=== PATIENT | male | born 1980 | race Caucasian/White ===

== ENCOUNTER 2017-06-06 16:13 | Inpatient (IN) | payer MEDICAID ==
[2017-06-06] MEDS ORDERED: Haloperidol Lactate 5 mg/mL 1mL Vial IM STA (16:45)
[2017-06-06] MEDS ORDERED: Sodium Chloride 0.9% 1,000 ML IV ONE (16:45)
[2017-06-06] MEDS ORDERED: Haloperidol Lactate 5 mg/mL 1mL Vial ONE (16:47)
--- NOTE | 2017-06-06 16:50 | ED Physician Chart ---
ED Chief Complaint/HPI - Patient Information Date Seen:: 06/06/17 Time Seen:: 16:15 Chief Complaint:: Poor Oral Intake History of Present Illness:: onset x 3 days of poor oral intake ALOC, AMS, and failure to thrive; no report of trauma, H/As, neck pain, C/P, SOB, Abd. Pain, A/N/V/D/C, fever, chills, or urinary s/s Allergies:: Allergies Allergy/AdvReac Type Severity Reaction Status Date / Time No Known Allergies Allergy Verified 06/06/17 16:29 Vitals:: Vital Signs - 8 hr 06/06/17 16:29 Temp 97.6 F HR 125 RR 16 BP 148/78 O2 Sat % 94 Historian:: Patient, EMS Review:: Nurse's Note Reviewed, Old Chart Reviewed, EMS run form Reviewed ED Review of Systems - Review of Systems General/Constitutional: No fever, No chills, No weight loss, No weakness, No diaphoresis, No edema, No loss of appetite Skin: No skin lesions, No rash, No bruising Head: No headache, No light-headedness Eyes: No loss of vision, No pain, No diplopia ENT: No earache, No nasal drainage, No sore throat, No tinnitus Neck: No neck pain, No swelling, No thyromegaly, No stiffness, No mass noted Cardio Vascular: No chest pain, No palpitations, No PND, No orthopnea, No edema Pulmonary: No SOB, No cough, No sputum, No wheezing GI: No nausea, No vomiting, No diarrhea, No pain, No melena, No hematochezia, No constipation, No hematemesis G/U: No dysuria, No frequency, No hematuria, No nacturia Musculoskeletal: No bone or joint pain, No back pain, No muscle pain Endocrine: No polyuria, No polydipsia Psychiatric: No prior psych history, No depression, No anxiety, No suicidal ideation, No homicidal ideation, No auditory hallucination, No visual hallucination Hematopoietic: No bruising, No lymphadenopathy Allergic/Immuno: No urticaria, No angioedema Neurological: No syncope, No focal symptoms, No weakness, No paresthesia, No headache, No seizure, No dizziness, Confusion, No vertigo ED Past Medical History - Past Medical History Obtainable: Yes Past Medical History: Dementia Family History: HTN Social History: Non Smoker, No Alcohol, No Drug Use, Single, Care Facility Surgical History: None Psychiatricy History: Dementia Medication: Reviewed Family Medical History - Family Member Mother History Unknown: Yes ED Physical Exam - Physical Examination General/Constitutional: Awake, Well-developed, well-nourished, Alert, No distress, GCS 15, Non-toxic appearing, Ambulatory Head: Atraumatic Eyes: Lids, conjuctiva normal, PERRL, EOMI Skin: Nl inspection, No rash, No skin lesions, No ecchymosis, Well hydrated, No lymphadenopathy ENMT: External ears, nose nl, TM canals nl, Nasal exam nl, Lips, teeth, gums nl , Oropharynx nl, Tonsils nl Neck: Nontender, Full ROM w/o pain, No JVD, No nuchal rigidity, No bruit, No mass, No stridor Respiratory: Nl effort/Exclusion, Clear to Auscultation, No Wheeze/Rhonchi/Rales Cardio Vascular: RRR, No murmur, gallop, rubs, NL S1 S2, Carotid/Femoral/Distal pulses equal bilaterally GI: No tenderness/rebounding/guarding, No organomegaly, No hernia, Normal BS's, Nondistended, No mass/bruits, No McBurney tenderness : No CVA tenderness Extremities: No tenderness or effusion, Full ROM, normal strength in all extremities, No edema, Normal digits & nails Neuro/Psych: DTR's symmetric, Normal sensory exam, Normal motor strength, Judgement/insight normal, Mood normal, Normal gait, No focal deficits Other Neuro/Psych comments:: Disoriented and Confused Misc: Normal back, No paraspinal tenderness ED Labs/Radiology/EKG Results - Lab Results Comments:: unremarkable ED Septic Shock - . Is Septic Shock (SBP<90, OR Lactate>4 mmol\L) present?: No - <6hrs of presentation: Vital Signs: Vital Signs - 8 hr 06/06/17 16:29 Temp 97.6 F HR 125 RR 16 BP 148/78 O2 Sat % 94 ED Reassessment (Disposition) - Reassessment Reassessment Condition:: Improved - Diagnosis Diagnosis:: Failure to Thrive; AMS; ALOC; Poor Oral Intake - Aftercare/Follow up Instructions Aftercare/Follow-Up Instructions:: Counseled pt regarding lab results/diagnosis & need follow up, Counseled pt & family regarding lab results/diagnosis & need follow up - Patient Disposition Discharge/Transfer:: Acute Care w/in this hosp Accepting Physician:: Dr. Crowley Time Called:: 1814 Time Responded:: 18:15 Admitted to:: Med/Surg Spoke to:: Dr. Crowley Admitting Medical Physician:: Dr. Crowley Condition at Disposition:: Stable, Improved
[2017-06-06 18:29] LABS: % BASOPHILS 0.1 % (0.0-2.0); % EOSINOPHILS 0.2 % (0.0-5.0); % LYMPHOCYTES 33.5 % (20.0-50.0); % MONOCYTES 4.6 % (2.0-10.0); % NEUTROPHILS 61.6 % (40.0-80.0); HEMATOCRIT 40.7 % (41.0-60); HEMOGLOBIN 13.5 gm/dL (12-16); LYMPHOCYTE ABSOLUTE 1.9 Th/cmm (1.5-3.0); MEAN CELL VOLUME 82.8 fl (80-99); MEAN CORPUSCULAR HEMOGLOBIN 27.6 pg (26.0-30.0); MEAN CORPUSCULAR HGB CONC 33.3 pg (28.0-36.0); MEAN PLATELET VOLUME 8.2 fl; MONOCYTE ABSOLUTE 0.3 Th/cmm (0.3-1.0); NEUTROPHILE ABSOLUTE 3.4 Th/cmm (1.8-8.0); PLATELET COUNT 206 Th/cmm (150-400); RED BLOOD COUNT 4.91 Mil/cmm (4.30-5.70); RED CELL DISTRIBUTION WIDTH 14.2 % (11.5-20.0); WHITE BLOOD COUNT 5.6 Th/cmm (4.8-10.8)
[2017-06-06 18:48] LABS: ANION GAP 12.8 (7.0-16.0); BUN - UREA NITROGEN 13 mg/dL (7-25); CALCIUM SERUM 9.5 mg/dL (8.6-10.3); CARBON DIOXIDE 25.7 mEq/L (21.0-31.0); CHLORIDE 101 mEq/L (98-107); CREATININE - SERUM 0.7 mg/dL (0.7-1.3); GFR AFRICAN-AMERICAN > 60.0 ml/min (>90); GFR NON AFRICAN-AMERICAN > 60.0 ml/min; GLUCOSE 140 mg/dL (70-105); LIPASE 33 U/L (11-82); POTASSIUM SERUM 3.5 mEq/L (3.5-5.1); SODIUM SERUM 136 mEq/L (136-145)
[2017-06-06] MEDS: D5-0.45NS 1,000 ML IV SCH (23:40)
[2017-06-07 07:04] LABS: ANION GAP 10.7 (7.0-16.0); BUN - UREA NITROGEN 7 mg/dL (7-25); CALCIUM SERUM 9.1 mg/dL (8.6-10.3); CARBON DIOXIDE 26.4 mEq/L (21.0-31.0); CHLORIDE 105 mEq/L (98-107); CREATININE - SERUM 0.7 mg/dL (0.7-1.3); GFR AFRICAN-AMERICAN > 60.0 ml/min (>90); GFR NON AFRICAN-AMERICAN > 60.0 ml/min; GLUCOSE 83 mg/dL (70-105); POTASSIUM SERUM 3.1 mEq/L (3.5-5.1); SODIUM SERUM 139 mEq/L (136-145)
[2017-06-07 07:15] LABS: % EOSINOPHILS 0.6 % (0.0-5.0); % LYMPHOCYTES 36.5 % (20.0-50.0); % MONOCYTES 6.4 % (2.0-10.0); % NEUTROPHILS 56.5 % (40.0-80.0); HEMATOCRIT 41.3 % (41.0-60); HEMOGLOBIN 13.7 gm/dL (12-16); LYMPHOCYTE ABSOLUTE 2.5 Th/cmm (1.5-3.0); MEAN CELL VOLUME 82.7 fl (80-99); MEAN CORPUSCULAR HEMOGLOBIN 27.3 pg (26.0-30.0); MEAN CORPUSCULAR HGB CONC 33.1 pg (28.0-36.0); MEAN PLATELET VOLUME 8.5 fl; MONOCYTE ABSOLUTE 0.4 Th/cmm (0.3-1.0); PLATELET COUNT 191 Th/cmm (150-400); RED BLOOD COUNT 4.99 Mil/cmm (4.30-5.70); RED CELL DISTRIBUTION WIDTH 13.9 % (11.5-20.0); WHITE BLOOD COUNT 6.9 Th/cmm (4.8-10.8)
--- NOTE | 2017-06-07 08:58 | Consultation ---
DATE OF CONSULTATION: 06/06/2017 PSYCHIATRIC CONSULTATION SEX: Male. PHYSICIAN: Elise Crowley MD REAL ESTATE UNDERWRITER: Yumiko Davalos MD, MPH REASON FOR CONSULT: Evaluating mental status condition. HISTORY OF PRESENT ILLNESS: The patient is a 37-year-old male who was admitted to the hospital because of poor oral intake. The patient has been also anxious. The patient seems to be developmentally disabled and he was not able to answer much of my questions at this time and he was not giving any reason for why he was not eating. He also seems to be ____ responding. PAST PSYCHIATRIC HISTORY: Not known. PAST MEDICAL HISTORY: Not known, except patient was admitted with failure to thrive diagnosis as well as altered level of consciousness. SOCIAL HISTORY: The patient lives in a alf. No known alcohol or drug use. MENTAL STATUS EXAMINATION: The patient appears slightly younger than stated age. Anxious. Irritable mood. Did not answer any of my questions. Thought processes are gross poverty of speech. The patient did not answer questions regarding hallucinations or delusions. Unable to assess the rest of the mental status exam, because the patient seems to be developmentally disabled based on his verbal ability. PRIMARY DIAGNOSIS: Unspecified psychosis. TREATMENT PLAN: We will monitor the patient's behavior and condition and we will start the patient on Remeron and we will adjust the dose. Thanks Dr. Crowley and we will follow with you. JOB# [id number]
--- NOTE | 2017-06-07 09:34 | General Progress Note ---
Subjective - Review of Systems Events since last encounter: patient confused in no acute distress Objective - Results Result Diagrams: 06/07/17 06:13 06/07/17 06:13 Recent Labs: Laboratory Last Values WBC 6.9 Th/cmm (4.8-10.8) 06/07/17 06:13 RBC 4.99 Mil/cmm (4.30-5.70) 06/07/17 06:13 Hgb 13.7 gm/dL (12-16) 06/07/17 06:13 Hct 41.3 % (41.0-60) 06/07/17 06:13 MCV 82.7 fl (80-99) 06/07/17 06:13 MCH 27.3 pg (26.0-30.0) 06/07/17 06:13 MCHC Differential 33.1 pg (28.0-36.0) 06/07/17 06:13 RDW 13.9 % (11.5-20.0) 06/07/17 06:13 Plt Count 191 Th/cmm (150-400) 06/07/17 06:13 MPV 8.5 fl 06/07/17 06:13 Neutrophils % 56.5 % (40.0-80.0) 06/07/17 06:13 Lymphocytes % 36.5 % (20.0-50.0) 06/07/17 06:13 Monocytes % 6.4 % (2.0-10.0) 06/07/17 06:13 Eosinophils % 0.6 % (0.0-5.0) 06/07/17 06:13 Basophils % 0.0 % (0.0-2.0) 06/07/17 06:13 Sodium 139 mEq/L (136-145) 06/07/17 06:13 Potassium 3.1 mEq/L (3.5-5.1) L 06/07/17 06:13 Chloride 105 mEq/L (98-107) 06/07/17 06:13 Carbon Dioxide 26.4 mEq/L (21.0-31.0) 06/07/17 06:13 Anion Gap 10.7 (7.0-16.0) 06/07/17 06:13 BUN 7 mg/dL (7-25) 06/07/17 06:13 Creatinine 0.7 mg/dL (0.7-1.3) 06/07/17 06:13 Est GFR ( Amer) > 60.0 ml/min (>90) 06/07/17 06:13 Est GFR (Non-Af Amer) > 60.0 ml/min 06/07/17 06:13 BUN/Creatinine Ratio 10.0 06/07/17 06:13 Glucose 83 mg/dL (70-105) 06/07/17 06:13 Calcium 9.1 mg/dL (8.6-10.3) 06/07/17 06:13 Troponin I < 0.01 ng/mL (0.01-0.05) L 06/06/17 18:13 Lipase 33 U/L (11-82) 06/06/17 18:13 - Physical Exam Vitals and I&O: Vital Signs Temp 98.2 F 06/07/17 04:00 Pulse 98 06/07/17 07:36 Resp 18 06/07/17 07:36 BP 136/72 06/07/17 04:00 Pulse Ox 92 06/07/17 07:36 Intake & Output 06/06/17 06/07/17 06/07/17 18:59 06:59 18:59 Intake Total 100 100 Balance 100 100 Weight (lbs) 55.928 kg 55.792 kg Intake: Oral 100 100 Other: # Voids 1 3 Active Medications: Current Medications Benztropine Mesylate (Cogentin) 1 mg PO BID KEMI Stop: 08/06/17 08:59 Cyproheptadine HCl (Periactin) 4 mg PO BID KEMI Stop: 08/06/17 08:59 Diphenhydramine HCl (Benadryl) 25 mg PO HS KEMI Stop: 08/06/17 20:59 Divalproex Sodium (Depakote Sprinkle) 125 mg PO BID KEMI PRN Reason: Protocol Stop: 08/06/17 08:59 Gemfibrozil (Lopid) 600 mg PO BID KEMI Stop: 08/06/17 08:59 Hydroxyzine Pamoate (Vistaril) 50 mg PO TID KEMI PRN Reason: Protocol Stop: 08/06/17 08:59 Dextrose/Sodium Chloride (D5-0.45ns) 1,000 mls @ 75 mls/hr IV .[id number] KEMI Stop: 08/05/17 22:09 Last Admin: 06/06/17 23:40 Dose: 75 mls/hr Lorazepam (Ativan) 1 mg IVP Q6H PRN; Protocol PRN Reason: Agitation Stop: 08/05/17 22:09 Last Admin: 06/07/17 05:27 Dose: 1 mg Mirtazapine (Remeron) 7.5 mg PO HS KEMI PRN Reason: Protocol Stop: 08/06/17 20:59 Miscellaneous (Risperidone [Risperdal]) 2 mg PO BID KEMI Stop: 08/06/17 08:59 Multivitamins/Vitamin C (Theragran) 1 tab PO DAILY KEMI Stop: 08/06/17 08:59 Risperidone (Risperdal) mg PO DAILY KEMI PRN Reason: Protocol Stop: 08/06/17 08:59
[2017-06-07] MEDS: Benztropine 1 MG TAB PO SCH ×2 (10:51→16:46)
[2017-06-07] MEDS: Cyproheptadine 4 mg Tab PO SCH ×2 (10:51→16:46)
[2017-06-07] MEDS: Multivitamin Tab PO SCH (10:51)
[2017-06-07] MEDS ORDERED: Potassium Chloride 20 mEq ER Tab PO ONE (12:08)
--- NOTE | 2017-06-07 16:39 | History & Physical ---
ADMIT DATE: 06/06/2017 HISTORY OF PRESENT ILLNESS: This patient came through the Emergency Room and was admitted on 06/06/2017. The patient has 3-day onset of poor intake, altered level of consciousness, failure to thrive and the patient was seen by Dr. Mo Tony and was admitted. PAST MEDICAL HISTORY: History of dementia. FAMILY HISTORY: History of hypertension. The patient is a poor historian. All the nurses' notes are noted. REVIEW OF SYSTEMS: Essentially, the patient has confusion and the patient is not able to eat. PHYSICAL EXAMINATION: GENERAL: Awake, alert and elderly male patient. VITAL SIGNS: As noted in chart. HEAD: Normal. ENT: Normal. NECK: Supple and nontender. LUNGS: Clear. CARDIOVASCULAR SYSTEM: S1 and S2 heard. ABDOMEN: Soft. Bowel sounds are heard. CENTRAL NERVOUS SYSTEM: The patient is disoriented and confused. DIAGNOSES: Severe dementia, failure to thrive, rule out electrolyte imbalance was made and the patient is being admitted and I will go ahead and do the workup and I will have Neurology and Psych doctor see the patient and I will follow the patient. JOB# [id number]
--- NOTE | 2017-06-08 08:45 | General Progress Note ---
Subjective - Review of Systems Events since last encounter: failure to thrive confused Objective - Results Result Diagrams: 06/07/17 06:13 06/07/17 06:13 Recent Labs: Laboratory Last Values WBC 6.9 Th/cmm (4.8-10.8) 06/07/17 06:13 RBC 4.99 Mil/cmm (4.30-5.70) 06/07/17 06:13 Hgb 13.7 gm/dL (12-16) 06/07/17 06:13 Hct 41.3 % (41.0-60) 06/07/17 06:13 MCV 82.7 fl (80-99) 06/07/17 06:13 MCH 27.3 pg (26.0-30.0) 06/07/17 06:13 MCHC Differential 33.1 pg (28.0-36.0) 06/07/17 06:13 RDW 13.9 % (11.5-20.0) 06/07/17 06:13 Plt Count 191 Th/cmm (150-400) 06/07/17 06:13 MPV 8.5 fl 06/07/17 06:13 Neutrophils % 56.5 % (40.0-80.0) 06/07/17 06:13 Lymphocytes % 36.5 % (20.0-50.0) 06/07/17 06:13 Monocytes % 6.4 % (2.0-10.0) 06/07/17 06:13 Eosinophils % 0.6 % (0.0-5.0) 06/07/17 06:13 Basophils % 0.0 % (0.0-2.0) 06/07/17 06:13 Sodium 139 mEq/L (136-145) 06/07/17 06:13 Potassium 3.1 mEq/L (3.5-5.1) L 06/07/17 06:13 Chloride 105 mEq/L (98-107) 06/07/17 06:13 Carbon Dioxide 26.4 mEq/L (21.0-31.0) 06/07/17 06:13 Anion Gap 10.7 (7.0-16.0) 06/07/17 06:13 BUN 7 mg/dL (7-25) 06/07/17 06:13 Creatinine 0.7 mg/dL (0.7-1.3) 06/07/17 06:13 Est GFR ( Amer) > 60.0 ml/min (>90) 06/07/17 06:13 Est GFR (Non-Af Amer) > 60.0 ml/min 06/07/17 06:13 BUN/Creatinine Ratio 10.0 06/07/17 06:13 Glucose 83 mg/dL (70-105) 06/07/17 06:13 Calcium 9.1 mg/dL (8.6-10.3) 06/07/17 06:13 Troponin I < 0.01 ng/mL (0.01-0.05) L 06/06/17 18:13 Lipase 33 U/L (11-82) 06/06/17 18:13 - Physical Exam Vitals and I&O: Vital Signs Temp 96.9 F 06/08/17 08:00 Pulse 64 06/08/17 08:00 Resp 16 06/08/17 08:00 BP 88/52 06/08/17 05:35 Pulse Ox 100 06/08/17 08:00 Intake & Output 06/07/17 06/08/17 06/08/17 18:59 06:59 18:59 Intake Total 2200 Balance 2200 Weight (lbs) 55.928 kg Intake: Intake, IV Amount 2000 D5-0.45NS 1,000 ml @ 75 1000 mls/hr IV .[id number] [facility] Rx #:[id number] Oral 200 Other: # Voids 2 # Bowel Movements 0 Active Medications: Current Medications Benztropine Mesylate (Cogentin) 1 mg PO BID KEMI Stop: 08/06/17 08:59 Last Admin: 06/07/17 16:46 Dose: 1 mg Cyproheptadine HCl (Periactin) 4 mg PO BID KEMI Stop: 08/06/17 08:59 Last Admin: 06/07/17 16:46 Dose: 4 mg Diphenhydramine HCl (Benadryl) 25 mg PO HS KEMI Stop: 08/06/17 20:59 Last Admin: 06/07/17 21:31 Dose: 25 mg Divalproex Sodium (Depakote Sprinkle) 125 mg PO BID [facility] PRN Reason: Protocol Stop: 08/06/17 11:59 Last Admin: 06/07/17 16:46 Dose: 125 mg Gemfibrozil (Lopid) 600 mg PO BID [facility] Stop: 08/06/17 08:59 Last Admin: 06/07/17 16:46 Dose: 600 mg Hydroxyzine Pamoate (Vistaril) 50 mg PO TID KEMI PRN Reason: Protocol Stop: 08/06/17 08:59 Last Admin: 06/07/17 21:31 Dose: 50 mg Dextrose/Sodium Chloride (D5-0.45ns) 1,000 mls @ 75 mls/hr IV .[id number] KEMI Stop: 08/05/17 22:09 Last Infusion: 06/07/17 18:05 Dose: Infused Lorazepam (Ativan) 1 mg IVP Q6H PRN; Protocol PRN Reason: Agitation Stop: 08/05/17 22:09 Last Admin: 06/07/17 21:34 Dose: 1 mg Mirtazapine (Remeron) 7.5 mg PO HS KEMI PRN Reason: Protocol Stop: 08/06/17 20:59 Last Admin: 06/07/17 22:05 Dose: 7.5 mg Multivitamins/Vitamin C (Theragran) 1 tab PO DAILY [facility] Stop: 08/06/17 08:59 Last Admin: 06/07/17 10:51 Dose: 1 tab Risperidone (Risperdal) 2 mg PO BID@0700,2100 [facility] Stop: 08/06/17 12:59 Last Admin: 06/08/17 06:58 Dose: Not Given Nutritional Asmnt/Malnutr-PDOC - Dietary Evaluation Malnutrition Findings (Please click <Entered> for more info): Nutritional Asmnt/Malnutrition Start: 06/07/17 15: 37 Text: Status: Complete Freq: Document 06/07/17 15:37 LCHENG (Rec: 06/07/17 15:47 [email or web address]) Nutritional Asmnt/Malnutrition Patient General Information Nutritional Screening High Risk Consult Diagnosis ALOC, poor oral intake Pertinent Medical Hx/Surgical Hx dementia Subjective Information Consult received for poor PO intake. Pt seen sitting up in bed, confused, avoid eye contact, not able to communicate. Per [employer], pt was sleeping and had no breakfast. Pt still refused lunch, and trying to get out of bed multiple times. Per note, pt is easily agitated, pull iv. Current Diet Order/ Nutrition Support regular Pertinent Medications D5-0.45ns, remeron, theragran Pertinent Labs 06/07 K 3.1 Nutritional Hx/Data Height 1.52 m Height (Calculated Centimeters) 152.4 Current Weight (lbs) 55.792 kg Weight (Calculated Kilograms) 55.8 Weight (Calculated Grams) 30162.9 [place] Body Weight 106 Body Mass Index (BMI) 24.0 Weight Status Approriate GI Symptoms GI Symptoms None Last BM no record Difficult in: None Skin Integrity/Comment: intact Estimated Nutritional Goals BEE in Kcals: Using Current wt Calories/Kcals/Kg 25-30 Kcals Calculated 8618-8836 Protein: Using Current wt Protein g/k.8-1 Protein Calculated 45-56 Fluid: ml 1400-1680ml (1ml/kcal) Nutritional Problem 1. Problem Problem inadequate food intake Etiology mental status Signs/Symptoms: PO intake<25% Malnutrition Alert Protein-Calorie Malnutrition N/A Is there a minimum of two criteria No selected? Query Text:Check all the applicable criteria. A minimum of two criteria are recommended for diagnosis of either severe or non-severe malnutrition. Intervention/Recommendation Comments 1. Continue with current diet as ordered. Assist with feeding and encourage eating meals and snacks between meals . 2. Monitor PO intake, wt, labs and skin integrity 3. F/U as high risk in 2-3 days, 06/08-06/09 Expected Outcomes/Goals Expected Outcomes/Goals 1. PO intake to meet at least 75% of nutritional needs. 2. Wt stability, skin to remain intact, labs to approach WNL.
--- NOTE | 2017-06-08 09:52 | Progress Notes ---
DATE: SUBJECTIVE: Chart reviewed and the patient interviewed. Also discussed the patient's condition with the staff and reviewed records and labs. The patient is still anxious and has episodes of agitation, but he is calm. The patient also is compliant with taking his medications and no side effects of Risperdal or Remeron or Depakote. ASSESSMENT: The patient is still depressed and anxious, considered to be gravely disabled. TREATMENT PLAN: We will continue to monitor his behavior. Also, the patient is taking Risperdal 1 mg twice a day and will discontinue 1 mg in the evening and we will continue to follow up. [facility]# [id number]
[2017-06-08] MEDS: Cyproheptadine 4 mg Tab PO SCH ×2 (10:10→17:09)
[2017-06-08] MEDS: Benztropine 1 MG TAB PO SCH ×2 (10:10→17:09)
[2017-06-08] MEDS: Multivitamin Tab PO SCH (10:11)
--- NOTE | 2017-06-08 10:18 | Diagnostic Imaging Report ---
CT abdomen and pelvis without intravenous contrast Indication: Abdominal pain Comparison: None, Technique: Axial images were obtained from the lung bases to the bilateral proximal femurs without IV contrast. Coronal reconstructions were made. total DLP: 440, CTDI8.3 FINDINGS: Hypoventilatory atelectatic changes of the lung bases are noted. Assessment of the solid organs is limited due to lack of IV contrast. Exam is also limited due to motion. No evidence of focal hepatic, splenic, or pancreatic lesions. No focal adrenal lesions. No evidence of hydronephrosis or focal renal lesions. There is copious amount of stool throughout the colon. No evidence of bowel obstruction. No evidence of appendicitis. There may be minimal thickening involving the descending colonic bowel wall. No free fluid or free air. The osseous structures demonstrate no acute abnormalities. IMPRESSION: Copious stool throughout the colon. There may be minimal bowel wall thickening of the descending colonic bowel wall. This may be due to suboptimal distention, however, mild inflammatory process cannot be excluded. Please correlate with clinical findings. No evidence of free abdominal fluid. No evidence of hydronephrosis
[2017-06-08] MEDS: D5-0.45NS 1,000 ML IV SCH (16:50)
[2017-06-08 17:12] LABS: URINE MICROSCOPIC INDICATED? YES; URINE SOURCE CLEAN C
[2017-06-08 17:15] LABS: URINE BILIRUBIN NEGATIVE (NEGATIVE); URINE BLOOD NEGATIVE (NEGATIVE); URINE GLUCOSE (UA) NEGATIVE (NEGATIVE); URINE KETONE NEGATIVE (NEGATIVE); URINE LEUKOCYTE ESTERASE NEGATIVE (NEGATIVE); URINE NITRATE NEGATIVE (NEGATIVE); URINE PROTEIN NEGATIVE (NEGATIVE)
--- NOTE | 2017-06-08 17:24 | Consultation ---
DATE OF CONSULTATION: 06/08/2017 INPATIENT GI CONSULTATION CONSULTING PHYSICIAN: Dr. Crowley. REASON FOR CONSULTATION: Failure to thrive, anorexia. HISTORY OF PRESENT ILLNESS: The patient is a 37-year-old male with history of dementia and possibly delayed development, who is a permanent resident of a alf facility, who was brought into the hospital because it was noted that he was not eating for the past 3-4 days. The history other than this is not obtainable as the patient at the current time is not participating in the interview. He was given Ativan last night for agitation and thus he is very sleepy this morning, but the nurses report that before that he was not giving a meaningful interview other than the agitation. His caretakers at the facility had noted that he just had not been eating for the past several days, but not exhibiting any specific symptoms such as nausea, vomiting, or abdominal distention. PAST MEDICAL HISTORY: Unknown except for possible developmental delay and psychiatric issues. FAMILY HISTORY: Unknown. PAST SURGICAL HISTORY: Also unknown at this point. SOCIAL HISTORY: The patient does live at a prison. There is no documented history of alcoholism or drug use. ALLERGIES: There are no documented known drug allergies. REVIEW OF SYSTEMS: Not possible given that the patient is not able to participate in the interview. CURRENT MEDICATIONS: Benztropine, cyproheptadine, Benadryl, Depakote, Lopid, Vistaril, Ativan, Remeron, multivitamin, Risperdal. PHYSICAL EXAMINATION: VITAL SIGNS: Blood pressure is 88/52, pulse of 65 beats per minute, temperature 96.8, and oxygenation 100%. GENERAL: The patient is lying flat in bed. He is in 2-point restraints. He is not alert and oriented at this point, does not appear to be in distress. HEAD, EARS, EYES, NOSE, AND THROAT: The patient has his eyes closed at this time, although he does respond to painful stimuli. There is no scleral icterus. Moist mucous membranes are noted. NECK: Supple. No obvious JVD or thyromegaly or lymphadenopathy. CHEST: There are no obvious crackles on auscultation. CARDIOVASCULAR: S1 and S2 are present, regular rate and rhythm. ABDOMEN: Soft. There is no obvious tenderness to palpation or distention or guarding or rebound. EXTREMITIES: There is no obvious edema and pulses are present. SKIN: No obvious jaundice or cyanosis. LABORATORY DATA AND DIAGNOSTIC STUDIES: White blood cell count is 6.9, hemoglobin 13.7, platelet count 191. Sodium 139, BUN 7, creatinine 0.7. Troponin is negative. Lipase 33. No imaging has been performed. IMPRESSION: This is a 37-year-old male, who is a resident of a prison, who has possibly developmental delay versus psychiatric illness, who was brought into the hospital because he has not been eating for the past 3 days. 1. Anorexia for 3 days. 2. Possible psychiatric illness versus developmental delay. DISCUSSION: At this point, it is very unclear what is going on as the patient has only not been eating for the past several days, so this seems like an acute process rather than a chronic issue. I think it may be reasonable before placing a G-tube to try to investigate this further, see if there is an infection or some other reason for the patient not taking in adequate p.o. I have ordered an abdominal CT scan to check out the stomach and small bowel and large bowel and also urinalysis to look for a UTI infection. RECOMMENDATIONS: 1. We will follow up the results of the abdominal CT scan and UA. Otherwise, his labs are essentially normal. 2. After the CT scan, the patient should be again given a diet and observe if he will take any nutrition. If everything is negative on his workup and he still is not taking any nutrition, we can consider placing a G-tube ultimately. Thank you for allowing me to participate in this patient's care. I will continue to follow. [facility]# [id number]
[2017-06-08 17:48] LABS: URINE BACTERIA OCCASIONAL /hpf (NONE SEEN); URINE CLARITY SLIGHTLY HAZY (CLEAR); URINE COLOR YELLOW; URINE EPITHELIAL CELLS RARE /lpf (FEW); URINE RBC NONE SEEN /hpf (0-5); URINE WBC 0-2 /hpf (0-5)
[2017-06-09] MEDS: D5-0.45NS 1,000 ML IV SCH (06:00)
[2017-06-09] MEDS: Cyproheptadine 4 mg Tab PO SCH ×2 (09:45→16:45)
[2017-06-09] MEDS: Multivitamin Tab PO SCH (09:45)
[2017-06-09] MEDS: Benztropine 1 MG TAB PO SCH ×2 (09:45→16:46)
--- NOTE | 2017-06-09 10:49 | GI Progress Note ---
Subjective - Review of Systems Service Date: 06/09/17 Subjective: Pt ate dinner as per nursing report, but had refused his lunch and breakfast yesterday Objective - Results Result Diagrams: 06/07/17 06:13 06/07/17 06:13 Recent Labs: Laboratory Last Values WBC 6.9 Th/cmm (4.8-10.8) 06/07/17 06:13 RBC 4.99 Mil/cmm (4.30-5.70) 06/07/17 06:13 Hgb 13.7 gm/dL (12-16) 06/07/17 06:13 Hct 41.3 % (41.0-60) 06/07/17 06:13 MCV 82.7 fl (80-99) 06/07/17 06:13 MCH 27.3 pg (26.0-30.0) 06/07/17 06:13 MCHC Differential 33.1 pg (28.0-36.0) 06/07/17 06:13 RDW 13.9 % (11.5-20.0) 06/07/17 06:13 Plt Count 191 Th/cmm (150-400) 06/07/17 06:13 MPV 8.5 fl 06/07/17 06:13 Neutrophils % 56.5 % (40.0-80.0) 06/07/17 06:13 Lymphocytes % 36.5 % (20.0-50.0) 06/07/17 06:13 Monocytes % 6.4 % (2.0-10.0) 06/07/17 06:13 Eosinophils % 0.6 % (0.0-5.0) 06/07/17 06:13 Basophils % 0.0 % (0.0-2.0) 06/07/17 06:13 Sodium 139 mEq/L (136-145) 06/07/17 06:13 Potassium 3.1 mEq/L (3.5-5.1) L 06/07/17 06:13 Chloride 105 mEq/L (98-107) 06/07/17 06:13 Carbon Dioxide 26.4 mEq/L (21.0-31.0) 06/07/17 06:13 Anion Gap 10.7 (7.0-16.0) 06/07/17 06:13 BUN 7 mg/dL (7-25) 06/07/17 06:13 Creatinine 0.7 mg/dL (0.7-1.3) 06/07/17 06:13 Est GFR ( Amer) > 60.0 ml/min (>90) 06/07/17 06:13 Est GFR (Non-Af Amer) > 60.0 ml/min 06/07/17 06:13 BUN/Creatinine Ratio 10.0 06/07/17 06:13 Glucose 83 mg/dL (70-105) 06/07/17 06:13 Calcium 9.1 mg/dL (8.6-10.3) 06/07/17 06:13 Troponin I < 0.01 ng/mL (0.01-0.05) L 06/06/17 18:13 Lipase 33 U/L (11-82) 06/06/17 18:13 Urine Source CLEAN C 06/08/17 15:30 Urine Color YELLOW 06/08/17 15:30 Urine Clarity SLIGHTLY HAZY (CLEAR) 06/08/17 15:30 Urine pH 6.0 (4.6 - 8.0) 06/08/17 15:30 Ur Specific [place] 1.025 (1.005-1.030) 06/08/17 15:30 Urine Protein NEGATIVE mg/dL (NEGATIVE) 06/08/17 15:30 Urine Glucose (UA) NEGATIVE mg/dL (NEGATIVE) 06/08/17 15:30 Urine Ketones NEGATIVE mg/dL (NEGATIVE) 06/08/17 15:30 Urine Blood NEGATIVE (NEGATIVE) 06/08/17 15:30 Urine Nitrate NEGATIVE (NEGATIVE) 06/08/17 15:30 Urine Bilirubin NEGATIVE (NEGATIVE) 06/08/17 15:30 Urine Urobilinogen 1.0 E.U./dL (0.2 - 1.0) 06/08/17 15:30 Ur Leukocyte Esterase NEGATIVE (NEGATIVE) 06/08/17 15:30 Urine RBC NONE SEEN /hpf (0-5) 06/08/17 15:30 Urine WBC 0-2 /hpf (0-5) 06/08/17 15:30 Ur Epithelial Cells RARE /lpf (FEW) 06/08/17 15:30 Calcium Oxalate Crystal FEW /hpf 06/08/17 15:30 Urine Bacteria OCCASIONAL /hpf (NONE SEEN) 06/08/17 15:30 - Physical Exam Vitals and I&O: Vital Signs Temp 98 F 06/09/17 09:00 Pulse 62 06/09/17 09:00 Resp 18 06/09/17 09:00 BP 93/48 06/09/17 09:00 Pulse Ox 98 06/09/17 08:00 Intake & Output 06/08/17 06/09/17 06/09/17 18:59 06:59 18:59 Intake Total 0 987.5 Output Total 300 2 Balance -300 985.5 Weight (lbs) 58.967 kg 59.08 kg Intake: Intake, IV Amount 987.5 D5-0.45NS 1,000 ml @ 75 987.5 mls/hr IV .[id number] [facility] Rx #:[id number] Oral 0 Output: Urine 300 2 Other: # Voids 0 Active Medications: Current Medications Benztropine Mesylate (Cogentin) 1 mg PO BID [facility] Stop: 08/06/17 08:59 Last Admin: 06/09/17 09:45 Dose: Not Given Cyproheptadine HCl (Periactin) 4 mg PO BID [facility] Stop: 08/06/17 08:59 Last Admin: 06/09/17 09:45 Dose: Not Given Diphenhydramine HCl (Benadryl) 25 mg PO HS [facility] Stop: 08/06/17 20:59 Last Admin: 06/08/17 21:47 Dose: Not Given Divalproex Sodium (Depakote Sprinkle) 125 mg PO BID [facility] PRN Reason: Protocol Stop: 08/06/17 11:59 Last Admin: 06/09/17 09:45 Dose: Not Given Gemfibrozil (Lopid) 600 mg PO BID [facility] Stop: 08/06/17 08:59 Last Admin: 06/09/17 09:45 Dose: Not Given Hydroxyzine Pamoate (Vistaril) 50 mg PO TID [facility] PRN Reason: Protocol Stop: 08/06/17 08:59 Last Admin: 06/09/17 09:45 Dose: Not Given Dextrose/Sodium Chloride (D5-0.45ns) 1,000 mls @ 75 mls/hr IV .[id number] [facility] Stop: 08/05/17 22:09 Last Admin: 06/09/17 06:00 Dose: 75 mls/hr Lorazepam (Ativan) 1 mg IVP Q6H PRN; Protocol PRN Reason: Agitation Stop: 08/05/17 22:09 Last Admin: 06/08/17 08:45 Dose: 1 mg Mirtazapine (Remeron) 7.5 mg PO HS [facility] PRN Reason: Protocol Stop: 08/06/17 20:59 Last Admin: 06/08/17 21:48 Dose: Not Given Multivitamins/Vitamin C (Theragran) 1 tab PO DAILY [facility] Stop: 08/06/17 08:59 Last Admin: 06/09/17 09:45 Dose: Not Given Risperidone (Risperdal) 2 mg PO BID@0700,2100 [facility] Stop: 08/06/17 12:59 Last Admin: 06/09/17 06:05 Dose: Not Given Sodium Phosphate (Fleet Enema) 135 ml RC X1 ONE Stop: 06/09/17 11:33 General: Alert Neck: Supple Cardiovascular: Regular rate Abdomen: Bowel sounds, Soft, Distended, no Hepatomegaly, no Rebound, no Mass, no Guarding, no Obese Skin: no Rash Assessment/Plan - Assessment Assessment: # Anorexia # Constipation # Developmental delay CT scan shows colon full of stool, and this is likely to be contributing to his refusal to eat. Will try and help him clear stool with enemas and laxatives from above Plan: - fleet enema now, and then tap water enema every 6 hours - miralax bid dosing - cont to try and encourage eating his meals - if he worsens, or does not improve, can consider NG insertion for bowel prep
[2017-06-09] MEDS ORDERED: Fleet Enema 135 mL RC ONE (11:32)
[2017-06-09] MEDS: POLYETHYLENE GLYCOL 3350 17 GM PACK PO SCH ×2 (13:36→16:45)
--- NOTE | 2017-06-09 15:28 | Internal Medicine Prog Note ---
Internal Medicine Subjective - Subjective Service Date: 06/09/17 Patient seen and examined:: with staff Patient is:: awake Per staff patient has:: tolerating meds Internal Medicine Objective - Results Result Diagrams: 06/07/17 06:13 06/07/17 06:13 Recent Labs: Laboratory Last Values WBC 6.9 Th/cmm (4.8-10.8) 06/07/17 06:13 RBC 4.99 Mil/cmm (4.30-5.70) 06/07/17 06:13 Hgb 13.7 gm/dL (12-16) 06/07/17 06:13 Hct 41.3 % (41.0-60) 06/07/17 06:13 MCV 82.7 fl (80-99) 06/07/17 06:13 MCH 27.3 pg (26.0-30.0) 06/07/17 06:13 MCHC Differential 33.1 pg (28.0-36.0) 06/07/17 06:13 RDW 13.9 % (11.5-20.0) 06/07/17 06:13 Plt Count 191 Th/cmm (150-400) 06/07/17 06:13 MPV 8.5 fl 06/07/17 06:13 Neutrophils % 56.5 % (40.0-80.0) 06/07/17 06:13 Lymphocytes % 36.5 % (20.0-50.0) 06/07/17 06:13 Monocytes % 6.4 % (2.0-10.0) 06/07/17 06:13 Eosinophils % 0.6 % (0.0-5.0) 06/07/17 06:13 Basophils % 0.0 % (0.0-2.0) 06/07/17 06:13 Sodium 139 mEq/L (136-145) 06/07/17 06:13 Potassium 3.1 mEq/L (3.5-5.1) L 06/07/17 06:13 Chloride 105 mEq/L (98-107) 06/07/17 06:13 Carbon Dioxide 26.4 mEq/L (21.0-31.0) 06/07/17 06:13 Anion Gap 10.7 (7.0-16.0) 06/07/17 06:13 BUN 7 mg/dL (7-25) 06/07/17 06:13 Creatinine 0.7 mg/dL (0.7-1.3) 06/07/17 06:13 Est GFR ( Amer) > 60.0 ml/min (>90) 06/07/17 06:13 Est GFR (Non-Af Amer) > 60.0 ml/min 06/07/17 06:13 BUN/Creatinine Ratio 10.0 06/07/17 06:13 Glucose 83 mg/dL (70-105) 06/07/17 06:13 Calcium 9.1 mg/dL (8.6-10.3) 06/07/17 06:13 Troponin I < 0.01 ng/mL (0.01-0.05) L 06/06/17 18:13 Lipase 33 U/L (11-82) 06/06/17 18:13 Urine Source CLEAN C 06/08/17 15:30 Urine Color YELLOW 06/08/17 15:30 Urine Clarity SLIGHTLY HAZY (CLEAR) 06/08/17 15:30 Urine pH 6.0 (4.6 - 8.0) 06/08/17 15:30 Ur Specific [place] 1.025 (1.005-1.030) 06/08/17 15:30 Urine Protein NEGATIVE mg/dL (NEGATIVE) 06/08/17 15:30 Urine Glucose (UA) NEGATIVE mg/dL (NEGATIVE) 06/08/17 15:30 Urine Ketones NEGATIVE mg/dL (NEGATIVE) 06/08/17 15:30 Urine Blood NEGATIVE (NEGATIVE) 06/08/17 15:30 Urine Nitrate NEGATIVE (NEGATIVE) 06/08/17 15:30 Urine Bilirubin NEGATIVE (NEGATIVE) 06/08/17 15:30 Urine Urobilinogen 1.0 E.U./dL (0.2 - 1.0) 06/08/17 15:30 Ur Leukocyte Esterase NEGATIVE (NEGATIVE) 06/08/17 15:30 Urine RBC NONE SEEN /hpf (0-5) 06/08/17 15:30 Urine WBC 0-2 /hpf (0-5) 06/08/17 15:30 Ur Epithelial Cells RARE /lpf (FEW) 06/08/17 15:30 Calcium Oxalate Crystal FEW /hpf 06/08/17 15:30 Urine Bacteria OCCASIONAL /hpf (NONE SEEN) 06/08/17 15:30 - Physical Exam Vitals and I&O: Vital Signs Temp 97.6 F 06/09/17 13:00 Pulse 104 06/09/17 13:00 Resp 18 06/09/17 13:00 BP 97/50 06/09/17 13:00 Pulse Ox 99 06/09/17 12:00 Intake & Output 06/08/17 06/09/17 06/09/17 18:59 06:59 18:59 Intake Total 0 987.5 Output Total 300 2 Balance -300 985.5 Weight (lbs) 130 lb 130 lb 4 oz Intake: Intake, IV Amount 987.5 D5-0.45NS 1,000 ml @ 75 987.5 mls/hr IV .[id number] [facility] Rx #:[id number] Oral 0 Output: Urine 300 2 Other: # Voids 0 Weight Source Bedscale Bedscale Active Medications: Current Medications Benztropine Mesylate (Cogentin) 1 mg PO BID [facility] Stop: 08/06/17 08:59 Last Admin: 06/09/17 09:45 Dose: Not Given Cyproheptadine HCl (Periactin) 4 mg PO BID [facility] Stop: 08/06/17 08:59 Last Admin: 06/09/17 09:45 Dose: Not Given Diphenhydramine HCl (Benadryl) 25 mg PO HS [facility] Stop: 08/06/17 20:59 Last Admin: 06/08/17 21:47 Dose: Not Given Divalproex Sodium (Depakote Sprinkle) 125 mg PO BID [facility] PRN Reason: Protocol Stop: 08/06/17 11:59 Last Admin: 06/09/17 09:45 Dose: Not Given Gemfibrozil (Lopid) 600 mg PO BID [facility] Stop: 08/06/17 08:59 Last Admin: 06/09/17 09:45 Dose: Not Given Hydroxyzine Pamoate (Vistaril) 50 mg PO TID [facility] PRN Reason: Protocol Stop: 08/06/17 08:59 Last Admin: 06/09/17 14:45 Dose: 50 mg Dextrose/Sodium Chloride (D5-0.45ns) 1,000 mls @ 75 mls/hr IV .[id number] [facility] Stop: 08/05/17 22:09 Last Admin: 06/09/17 06:00 Dose: 75 mls/hr Lorazepam (Ativan) 1 mg IVP Q6H PRN; Protocol PRN Reason: Agitation Stop: 08/05/17 22:09 Last Admin: 06/09/17 11:34 Dose: 1 mg Mirtazapine (Remeron) 7.5 mg PO HS [facility] PRN Reason: Protocol Stop: 08/06/17 20:59 Last Admin: 06/08/17 21:48 Dose: Not Given Multivitamins/Vitamin C (Theragran) 1 tab PO DAILY [facility] Stop: 08/06/17 08:59 Last Admin: 06/09/17 09:45 Dose: Not Given Polyethylene Glycol (Miralax) 17 gm PO BID [facility] Stop: 08/08/17 12:14 Last Admin: 06/09/17 13:36 Dose: 17 gm Risperidone (Risperdal) 2 mg PO BID@0700,2100 [facility] Stop: 08/06/17 12:59 Last Admin: 06/09/17 06:05 Dose: Not Given General: weak, alert HEENT: NC/AT, PERRLA Neck: Supple Lungs: CTAB Cardiovascular: RRR, without murmur Abdomen: soft, non-distended, positive bowel sound Neurological: alert Internal Medicine Assmt/Plan - Assessment Assessment: severe dementia failure to thrive r/o electrolyte imbalance - Plan Plan: monitor i+o and electrolytes follow up labs in am continue current orders Nutritional Asmnt/Malnutr-PDOC - Dietary Evaluation Malnutrition Findings (Please click <Entered> for more info): Nutritional Asmnt/Malnutrition Start: 06/07/17 15: 37 Text: Status: Complete Freq: Document 06/07/17 15:37 LCHENG (Rec: 06/07/17 15:47 [email or web address]) Nutritional Asmnt/Malnutrition Patient General Information Nutritional Screening High Risk Consult Diagnosis ALOC, poor oral intake Pertinent Medical Hx/Surgical Hx dementia Subjective Information Consult received for poor PO intake. Pt seen sitting up in bed, confused, avoid eye contact, not able to communicate. Per OUTREACH LIBRARIAN, pt was sleeping and had no breakfast. Pt still refused lunch, and trying to get out of bed multiple times. Per note, pt is easily agitated, pull iv. Current Diet Order/ Nutrition Support regular Pertinent Medications D5-0.45ns, remeron, theragran Pertinent Labs 06/07 K 3.1 Nutritional Hx/Data Height 5 ft Height (Calculated Centimeters) 152.4 Current Weight (lbs) 123 lb Weight (Calculated Kilograms) 55.8 Weight (Calculated Grams) 66086.9 [place] Body Weight 106 Body Mass Index (BMI) 24.0 Weight Status Approriate GI Symptoms GI Symptoms None Last BM no record Difficult in: None Skin Integrity/Comment: intact Estimated Nutritional Goals BEE in Kcals: Using Current wt Calories/Kcals/Kg 25-30 Kcals Calculated 2724-3300 Protein: Using Current wt Protein g/k.8-1 Protein Calculated 45-56 Fluid: ml 1400-1680ml (1ml/kcal) Nutritional Problem 1. Problem Problem inadequate food intake Etiology mental status Signs/Symptoms: PO intake<25% Malnutrition Alert Protein-Calorie Malnutrition N/A Is there a minimum of two criteria No selected? Query Text:Check all the applicable criteria. A minimum of two criteria are recommended for diagnosis of either severe or non-severe malnutrition. Intervention/Recommendation Comments 1. Continue with current diet as ordered. Assist with feeding and encourage eating meals and snacks between meals . 2. Monitor PO intake, wt, labs and skin integrity 3. F/U as high risk in 2-3 days, 06/08-06/09 Expected Outcomes/Goals Expected Outcomes/Goals 1. PO intake to meet at least 75% of nutritional needs. 2. Wt stability, skin to remain intact, labs to approach WNL.
[2017-06-09] MEDS ORDERED: Haloperidol Lactate 5 mg/mL 1mL Vial IM PRN (18:51)
[2017-06-10 07:05] LABS: % BASOPHILS 0.4 % (0.0-2.0); % LYMPHOCYTES 47.5 % (20.0-50.0); % MONOCYTES 6.4 % (2.0-10.0); % NEUTROPHILS 44.7 % (40.0-80.0); EOSINOPHILE ABSOLUTE 0.1 Th/cmm (0.1-0.4); HEMATOCRIT 42.8 % (41.0-60); LYMPHOCYTE ABSOLUTE 2.9 Th/cmm (1.5-3.0); MEAN CELL VOLUME 83.4 fl (80-99); MEAN CORPUSCULAR HEMOGLOBIN 27.3 pg (26.0-30.0); MEAN CORPUSCULAR HGB CONC 32.8 pg (28.0-36.0); MEAN PLATELET VOLUME 8.4 fl; MONOCYTE ABSOLUTE 0.4 Th/cmm (0.3-1.0); NEUTROPHILE ABSOLUTE 2.7 Th/cmm (1.8-8.0); PLATELET COUNT 192 Th/cmm (150-400); RED BLOOD COUNT 5.14 Mil/cmm (4.30-5.70); RED CELL DISTRIBUTION WIDTH 14.3 % (11.5-20.0); WHITE BLOOD COUNT 6.1 Th/cmm (4.8-10.8)
[2017-06-10 07:19] LABS: ANION GAP 10.4 (7.0-16.0); BUN - UREA NITROGEN 5 mg/dL (7-25); CALCIUM SERUM 9.4 mg/dL (8.6-10.3); CARBON DIOXIDE 25.8 mEq/L (21.0-31.0); CHLORIDE 108 mEq/L (98-107); CREATININE - SERUM 0.6 mg/dL (0.7-1.3); GFR AFRICAN-AMERICAN > 60.0 ml/min (>90); GFR NON AFRICAN-AMERICAN > 60.0 ml/min; GLUCOSE 81 mg/dL (70-105); POTASSIUM SERUM 3.2 mEq/L (3.5-5.1); SODIUM SERUM 141 mEq/L (136-145)
--- NOTE | 2017-06-10 08:39 | GI Progress Note ---
Subjective - Review of Systems Service Date: 06/10/17 Subjective: GI NOTE Not eating much this AM. Objective - Results Result Diagrams: 06/10/17 06:30 06/10/17 06:30 Recent Labs: Laboratory Last Values WBC 6.1 Th/cmm (4.8-10.8) 06/10/17 06:30 RBC 5.14 Mil/cmm (4.30-5.70) 06/10/17 06:30 Hgb 14.0 gm/dL (12-16) 06/10/17 06:30 Hct 42.8 % (41.0-60) 06/10/17 06:30 MCV 83.4 fl (80-99) 06/10/17 06:30 MCH 27.3 pg (26.0-30.0) 06/10/17 06:30 MCHC Differential 32.8 pg (28.0-36.0) 06/10/17 06:30 RDW 14.3 % (11.5-20.0) 06/10/17 06:30 Plt Count 192 Th/cmm (150-400) 06/10/17 06:30 MPV 8.4 fl 06/10/17 06:30 Neutrophils % 44.7 % (40.0-80.0) 06/10/17 06:30 Lymphocytes % 47.5 % (20.0-50.0) 06/10/17 06:30 Monocytes % 6.4 % (2.0-10.0) 06/10/17 06:30 Eosinophils % 1.0 % (0.0-5.0) 06/10/17 06:30 Basophils % 0.4 % (0.0-2.0) 06/10/17 06:30 Sodium 141 mEq/L (136-145) 06/10/17 06:30 Potassium 3.2 mEq/L (3.5-5.1) L 06/10/17 06:30 Chloride 108 mEq/L (98-107) H 06/10/17 06:30 Carbon Dioxide 25.8 mEq/L (21.0-31.0) 06/10/17 06:30 Anion Gap 10.4 (7.0-16.0) 06/10/17 06:30 BUN 5 mg/dL (7-25) L 06/10/17 06:30 Creatinine 0.6 mg/dL (0.7-1.3) L 06/10/17 06:30 Est GFR ( Amer) > 60.0 ml/min (>90) 06/10/17 06:30 Est GFR (Non-Af Amer) > 60.0 ml/min 06/10/17 06:30 BUN/Creatinine Ratio 8.3 06/10/17 06:30 Glucose 81 mg/dL (70-105) 06/10/17 06:30 Calcium 9.4 mg/dL (8.6-10.3) 06/10/17 06:30 Troponin I < 0.01 ng/mL (0.01-0.05) L 06/06/17 18:13 Lipase 33 U/L (11-82) 06/06/17 18:13 Urine Source CLEAN C 06/08/17 15:30 Urine Color YELLOW 06/08/17 15:30 Urine Clarity SLIGHTLY HAZY (CLEAR) 06/08/17 15:30 Urine pH 6.0 (4.6 - 8.0) 06/08/17 15:30 Ur Specific [place] 1.025 (1.005-1.030) 06/08/17 15:30 Urine Protein NEGATIVE mg/dL (NEGATIVE) 06/08/17 15:30 Urine Glucose (UA) NEGATIVE mg/dL (NEGATIVE) 06/08/17 15:30 Urine Ketones NEGATIVE mg/dL (NEGATIVE) 06/08/17 15:30 Urine Blood NEGATIVE (NEGATIVE) 06/08/17 15:30 Urine Nitrate NEGATIVE (NEGATIVE) 06/08/17 15:30 Urine Bilirubin NEGATIVE (NEGATIVE) 06/08/17 15:30 Urine Urobilinogen 1.0 E.U./dL (0.2 - 1.0) 06/08/17 15:30 Ur Leukocyte Esterase NEGATIVE (NEGATIVE) 06/08/17 15:30 Urine RBC NONE SEEN /hpf (0-5) 06/08/17 15:30 Urine WBC 0-2 /hpf (0-5) 06/08/17 15:30 Ur Epithelial Cells RARE /lpf (FEW) 06/08/17 15:30 Calcium Oxalate Crystal FEW /hpf 06/08/17 15:30 Urine Bacteria OCCASIONAL /hpf (NONE SEEN) 06/08/17 15:30 - Physical Exam Vitals and I&O: Vital Signs Temp 97.2 F 06/10/17 04:00 Pulse 65 06/10/17 04:00 Resp 20 06/10/17 04:00 BP 92/51 06/10/17 04:00 Pulse Ox 96 06/10/17 04:00 Intake & Output 06/09/17 06/10/17 06/10/17 18:59 06:59 18:59 Intake Total 300 120 Balance 300 120 Weight (lbs) 58.967 kg 58.967 kg Intake: Oral 300 120 Other: # Voids 4 3 # Bowel Movements 1 Stool Characteristics Soft Weight Source Bedscale Bedscale Active Medications: Current Medications Benztropine Mesylate (Cogentin) 1 mg PO BID [facility] Stop: 08/06/17 08:59 Last Admin: 06/09/17 16:46 Dose: 1 mg Cyproheptadine HCl (Periactin) 4 mg PO BID [facility] Stop: 08/06/17 08:59 Last Admin: 06/09/17 16:45 Dose: 4 mg Diphenhydramine HCl (Benadryl) 25 mg PO HS [facility] Stop: 08/06/17 20:59 Last Admin: 06/09/17 21:00 Dose: 25 mg Diphenhydramine HCl (Benadryl 50 Mg/Ml) 25 mg IM Q6HR PRN PRN Reason: Agitation Stop: 08/08/17 18:55 Divalproex Sodium (Depakote Sprinkle) 125 mg PO BID [facility] PRN Reason: Protocol Stop: 08/06/17 11:59 Last Admin: 06/09/17 16:46 Dose: 125 mg Gemfibrozil (Lopid) 600 mg PO BID [facility] Stop: 08/06/17 08:59 Last Admin: 06/09/17 16:46 Dose: 600 mg Haloperidol Lactate (Haldol) 3 mg IM Q6H PRN PRN Reason: Agitation Stop: 08/08/17 18:50 Hydroxyzine Pamoate (Vistaril) 50 mg PO TID [facility] PRN Reason: Protocol Stop: 08/06/17 08:59 Last Admin: 06/09/17 20:59 Dose: 50 mg Dextrose/Sodium Chloride (D5-0.45ns) 1,000 mls @ 75 mls/hr IV .[id number] [facility] Stop: 08/05/17 22:09 Last Admin: 06/09/17 06:00 Dose: 75 mls/hr Lorazepam (Ativan) 1 mg IVP Q6H PRN; Protocol PRN Reason: Agitation Stop: 08/05/17 22:09 Last Admin: 06/09/17 16:29 Dose: 1 mg Lorazepam (Ativan) 1 mg IM Q6H PRN; Protocol PRN Reason: Agitation Stop: 08/08/17 18:53 Mirtazapine (Remeron) 7.5 mg PO HS [facility] PRN Reason: Protocol Stop: 08/06/17 20:59 Last Admin: 06/09/17 21:00 Dose: 7.5 mg Multivitamins/Vitamin C (Theragran) 1 tab PO DAILY [facility] Stop: 08/06/17 08:59 Last Admin: 06/09/17 09:45 Dose: Not Given Polyethylene Glycol (Miralax) 17 gm PO BID [facility] Stop: 08/08/17 12:14 Last Admin: 06/09/17 16:45 Dose: 17 gm Risperidone (Risperdal) 2 mg PO BID@0700,2100 [facility] Stop: 08/06/17 12:59 Last Admin: 06/10/17 06:22 Dose: Not Given General: No acute distress Neck: Supple Cardiovascular: Regular rate Abdomen: Bowel sounds, Soft, Distended, no Hepatomegaly, no Rebound, no Mass, no Guarding, no Obese Assessment/Plan - Assessment Assessment: # Anorexia # Constipation # Developmental delay CT scan shows colon full of stool, and this is likely to be contributing to his refusal to eat. Will try and help him clear stool with enemas and laxatives from above Plan: - tap water enema every 6 hours - miralax bid dosing - cont to try and encourage eating his meals - if he worsens, or does not improve, can consider NG insertion for bowel prep - may need PEG insertion if oral intake remains poor.
[2017-06-10] MEDS: POLYETHYLENE GLYCOL 3350 17 GM PACK PO SCH ×2 (08:40→16:53)
[2017-06-10] MEDS: Benztropine 1 MG TAB PO SCH ×2 (08:41→16:53)
[2017-06-10] MEDS: Cyproheptadine 4 mg Tab PO SCH ×2 (08:41→16:53)
[2017-06-10] MEDS: Multivitamin Tab PO SCH (08:42)
--- NOTE | 2017-06-10 10:48 | General Progress Note ---
Subjective - Review of Systems Events since last encounter: awake alert poor appetite Objective - Results Result Diagrams: 06/10/17 06:30 06/10/17 06:30 Recent Labs: Laboratory Last Values WBC 6.1 Th/cmm (4.8-10.8) 06/10/17 06:30 RBC 5.14 Mil/cmm (4.30-5.70) 06/10/17 06:30 Hgb 14.0 gm/dL (12-16) 06/10/17 06:30 Hct 42.8 % (41.0-60) 06/10/17 06:30 MCV 83.4 fl (80-99) 06/10/17 06:30 MCH 27.3 pg (26.0-30.0) 06/10/17 06:30 MCHC Differential 32.8 pg (28.0-36.0) 06/10/17 06:30 RDW 14.3 % (11.5-20.0) 06/10/17 06:30 Plt Count 192 Th/cmm (150-400) 06/10/17 06:30 MPV 8.4 fl 06/10/17 06:30 Neutrophils % 44.7 % (40.0-80.0) 06/10/17 06:30 Lymphocytes % 47.5 % (20.0-50.0) 06/10/17 06:30 Monocytes % 6.4 % (2.0-10.0) 06/10/17 06:30 Eosinophils % 1.0 % (0.0-5.0) 06/10/17 06:30 Basophils % 0.4 % (0.0-2.0) 06/10/17 06:30 Sodium 141 mEq/L (136-145) 06/10/17 06:30 Potassium 3.2 mEq/L (3.5-5.1) L 06/10/17 06:30 Chloride 108 mEq/L (98-107) H 06/10/17 06:30 Carbon Dioxide 25.8 mEq/L (21.0-31.0) 06/10/17 06:30 Anion Gap 10.4 (7.0-16.0) 06/10/17 06:30 BUN 5 mg/dL (7-25) L 06/10/17 06:30 Creatinine 0.6 mg/dL (0.7-1.3) L 06/10/17 06:30 Est GFR ( Amer) > 60.0 ml/min (>90) 06/10/17 06:30 Est GFR (Non-Af Amer) > 60.0 ml/min 06/10/17 06:30 BUN/Creatinine Ratio 8.3 06/10/17 06:30 Glucose 81 mg/dL (70-105) 06/10/17 06:30 Calcium 9.4 mg/dL (8.6-10.3) 06/10/17 06:30 Troponin I < 0.01 ng/mL (0.01-0.05) L 06/06/17 18:13 Lipase 33 U/L (11-82) 06/06/17 18:13 Urine Source CLEAN C 06/08/17 15:30 Urine Color YELLOW 06/08/17 15:30 Urine Clarity SLIGHTLY HAZY (CLEAR) 06/08/17 15:30 Urine pH 6.0 (4.6 - 8.0) 06/08/17 15:30 Ur Specific [place] 1.025 (1.005-1.030) 06/08/17 15:30 Urine Protein NEGATIVE mg/dL (NEGATIVE) 06/08/17 15:30 Urine Glucose (UA) NEGATIVE mg/dL (NEGATIVE) 06/08/17 15:30 Urine Ketones NEGATIVE mg/dL (NEGATIVE) 06/08/17 15:30 Urine Blood NEGATIVE (NEGATIVE) 06/08/17 15:30 Urine Nitrate NEGATIVE (NEGATIVE) 06/08/17 15:30 Urine Bilirubin NEGATIVE (NEGATIVE) 06/08/17 15:30 Urine Urobilinogen 1.0 E.U./dL (0.2 - 1.0) 06/08/17 15:30 Ur Leukocyte Esterase NEGATIVE (NEGATIVE) 06/08/17 15:30 Urine RBC NONE SEEN /hpf (0-5) 06/08/17 15:30 Urine WBC 0-2 /hpf (0-5) 06/08/17 15:30 Ur Epithelial Cells RARE /lpf (FEW) 06/08/17 15:30 Calcium Oxalate Crystal FEW /hpf 06/08/17 15:30 Urine Bacteria OCCASIONAL /hpf (NONE SEEN) 06/08/17 15:30 - Physical Exam Vitals and I&O: Vital Signs Temp 97.7 F 06/10/17 09:00 Pulse 83 06/10/17 09:00 Resp 18 06/10/17 09:00 BP 107/50 06/10/17 09:00 Pulse Ox 98 06/10/17 08:00 Intake & Output 06/09/17 06/10/17 06/10/17 18:59 06:59 18:59 Intake Total 300 120 Balance 300 120 Weight (lbs) 58.967 kg 58.967 kg Intake: Oral 300 120 Other: # Voids 4 3 # Bowel Movements 1 Stool Characteristics Soft Soft Weight Source Bedscale Bedscale Active Medications: Current Medications Benztropine Mesylate (Cogentin) 1 mg PO BID [facility] Stop: 08/06/17 08:59 Last Admin: 06/10/17 08:41 Dose: 1 mg Cyproheptadine HCl (Periactin) 4 mg PO BID [facility] Stop: 08/06/17 08:59 Last Admin: 06/10/17 08:41 Dose: 4 mg Diphenhydramine HCl (Benadryl) 25 mg PO HS [facility] Stop: 08/06/17 20:59 Last Admin: 06/09/17 21:00 Dose: 25 mg Diphenhydramine HCl (Benadryl 50 Mg/Ml) 25 mg IM Q6HR PRN PRN Reason: Agitation Stop: 08/08/17 18:55 Divalproex Sodium (Depakote Sprinkle) 125 mg PO BID [facility] PRN Reason: Protocol Stop: 08/06/17 11:59 Last Admin: 06/10/17 08:42 Dose: 125 mg Gemfibrozil (Lopid) 600 mg PO BID [facility] Stop: 08/06/17 08:59 Last Admin: 06/10/17 08:42 Dose: 600 mg Haloperidol Lactate (Haldol) 3 mg IM Q6H PRN PRN Reason: Agitation Stop: 08/08/17 18:50 Hydroxyzine Pamoate (Vistaril) 50 mg PO TID [facility] PRN Reason: Protocol Stop: 08/06/17 08:59 Last Admin: 06/10/17 08:42 Dose: 50 mg Dextrose/Sodium Chloride (D5-0.45ns) 1,000 mls @ 75 mls/hr IV .[id number] [facility] Stop: 08/05/17 22:09 Last Admin: 06/09/17 06:00 Dose: 75 mls/hr Lorazepam (Ativan) 1 mg IVP Q6H PRN; Protocol PRN Reason: Agitation Stop: 08/05/17 22:09 Last Admin: 06/09/17 16:29 Dose: 1 mg Lorazepam (Ativan) 1 mg IM Q6H PRN; Protocol PRN Reason: Agitation Stop: 08/08/17 18:53 Mirtazapine (Remeron) 7.5 mg PO HS [facility] PRN Reason: Protocol Stop: 08/06/17 20:59 Last Admin: 06/09/17 21:00 Dose: 7.5 mg Multivitamins/Vitamin C (Theragran) 1 tab PO DAILY [facility] Stop: 08/06/17 08:59 Last Admin: 06/10/17 08:42 Dose: 1 tab Polyethylene Glycol (Miralax) 17 gm PO BID [facility] Stop: 08/08/17 12:14 Last Admin: 06/10/17 08:40 Dose: 17 gm Risperidone (Risperdal) 2 mg PO BID@0700,2100 [facility] Stop: 08/06/17 12:59 Last Admin: 06/10/17 06:22 Dose: Not Given General: No acute distress Neck: Supple Cardiovascular: Regular rate Abdomen: Bowel sounds, Soft, Distended, no Hepatomegaly, no Rebound, no Mass, no Guarding, no Obese Skin: no Rash Nutritional Asmnt/Malnutr-PDOC - Dietary Evaluation Malnutrition Findings (Please click <Entered> for more info): Nutritional Asmnt/Malnutrition Start: 06/07/17 15: 37 Text: Status: Complete Freq: Document 06/07/17 15:37 LCHENG (Rec: 06/07/17 15:47 [email or web address]) Nutritional Asmnt/Malnutrition Patient General Information Nutritional Screening High Risk Consult Diagnosis ALOC, poor oral intake Pertinent Medical Hx/Surgical Hx dementia Subjective Information Consult received for poor PO intake. Pt seen sitting up in bed, confused, avoid eye contact, not able to communicate. Per SANE RN, pt was sleeping and had no breakfast. Pt still refused lunch, and trying to get out of bed multiple times. Per note, pt is easily agitated, pull iv. Current Diet Order/ Nutrition Support regular Pertinent Medications D5-0.45ns, remeron, theragran Pertinent Labs 3/21 K 3.1 Nutritional Hx/Data Height 1.52 m Height (Calculated Centimeters) 152.4 Current Weight (lbs) 55.792 kg Weight (Calculated Kilograms) 55.8 Weight (Calculated Grams) 85808.9 [place] Body Weight 106 Body Mass Index (BMI) 24.0 Weight Status Approriate GI Symptoms GI Symptoms None Last BM no record Difficult in: None Skin Integrity/Comment: intact Estimated Nutritional Goals BEE in Kcals: Using Current wt Calories/Kcals/Kg 25-30 Kcals Calculated 5609-3213 Protein: Using Current wt Protein g/k.8-1 Protein Calculated 45-56 Fluid: ml 1400-1680ml (1ml/kcal) Nutritional Problem 1. Problem Problem inadequate food intake Etiology mental status Signs/Symptoms: PO intake<25% Malnutrition Alert Protein-Calorie Malnutrition N/A Is there a minimum of two criteria No selected? Query Text:Check all the applicable criteria. A minimum of two criteria are recommended for diagnosis of either severe or non-severe malnutrition. Intervention/Recommendation Comments 1. Continue with current diet as ordered. Assist with feeding and encourage eating meals and snacks between meals . 2. Monitor PO intake, wt, labs and skin integrity 3. F/U as high risk in 2-3 days, 06/08-06/09 Expected Outcomes/Goals Expected Outcomes/Goals 1. PO intake to meet at least 75% of nutritional needs. 2. Wt stability, skin to remain intact, labs to approach WNL.
[2017-06-10] MEDS: D5-0.45NS 1,000 ML IV SCH (13:54)
--- NOTE | 2017-06-10 21:16 | Progress Notes ---
DATE: 06/09/2017 Chart reviewed and the patient interviewed. Also discussed the patient's condition with the staff and reviewed records and labs. The patient seems to be more irritable and more agitated today. Also, is still unable to follow directions easy. The patient also is still aggressive towards staff when they tried to calm him down. He also seems to be confused and forgetful and unable to answer my questions currently. ASSESSMENT: The patient is still agitated and is still restless and aggressive. TREATMENT PLAN: We will continue to monitor his behavior and his condition closely. Also, continue to work on his irritability and anger. Also, may adjust psychotropic medications and will continue to follow up. JOB# [id number]
[2017-06-11] MEDS: D5-0.45NS 1,000 ML IV SCH ×2 (05:33→21:11)
--- NOTE | 2017-06-11 08:20 | GI Progress Note ---
Subjective - Review of Systems Service Date: 06/11/17 Subjective: GI NOTE Not eating much. Confused. Objective - Results Result Diagrams: 06/10/17 06:30 06/10/17 06:30 Recent Labs: Laboratory Last Values WBC 6.1 Th/cmm (4.8-10.8) 06/10/17 06:30 RBC 5.14 Mil/cmm (4.30-5.70) 06/10/17 06:30 Hgb 14.0 gm/dL (12-16) 06/10/17 06:30 Hct 42.8 % (41.0-60) 06/10/17 06:30 MCV 83.4 fl (80-99) 06/10/17 06:30 MCH 27.3 pg (26.0-30.0) 06/10/17 06:30 MCHC Differential 32.8 pg (28.0-36.0) 06/10/17 06:30 RDW 14.3 % (11.5-20.0) 06/10/17 06:30 Plt Count 192 Th/cmm (150-400) 06/10/17 06:30 MPV 8.4 fl 06/10/17 06:30 Neutrophils % 44.7 % (40.0-80.0) 06/10/17 06:30 Lymphocytes % 47.5 % (20.0-50.0) 06/10/17 06:30 Monocytes % 6.4 % (2.0-10.0) 06/10/17 06:30 Eosinophils % 1.0 % (0.0-5.0) 06/10/17 06:30 Basophils % 0.4 % (0.0-2.0) 06/10/17 06:30 Sodium 141 mEq/L (136-145) 06/10/17 06:30 Potassium 3.2 mEq/L (3.5-5.1) L 06/10/17 06:30 Chloride 108 mEq/L (98-107) H 06/10/17 06:30 Carbon Dioxide 25.8 mEq/L (21.0-31.0) 06/10/17 06:30 Anion Gap 10.4 (7.0-16.0) 06/10/17 06:30 BUN 5 mg/dL (7-25) L 06/10/17 06:30 Creatinine 0.6 mg/dL (0.7-1.3) L 06/10/17 06:30 Est GFR ( Amer) > 60.0 ml/min (>90) 06/10/17 06:30 Est GFR (Non-Af Amer) > 60.0 ml/min 06/10/17 06:30 BUN/Creatinine Ratio 8.3 06/10/17 06:30 Glucose 81 mg/dL (70-105) 06/10/17 06:30 Calcium 9.4 mg/dL (8.6-10.3) 06/10/17 06:30 Troponin I < 0.01 ng/mL (0.01-0.05) L 06/06/17 18:13 Lipase 33 U/L (11-82) 06/06/17 18:13 Urine Source CLEAN C 06/08/17 15:30 Urine Color YELLOW 06/08/17 15:30 Urine Clarity SLIGHTLY HAZY (CLEAR) 06/08/17 15:30 Urine pH 6.0 (4.6 - 8.0) 06/08/17 15:30 Ur Specific [place] 1.025 (1.005-1.030) 06/08/17 15:30 Urine Protein NEGATIVE mg/dL (NEGATIVE) 06/08/17 15:30 Urine Glucose (UA) NEGATIVE mg/dL (NEGATIVE) 06/08/17 15:30 Urine Ketones NEGATIVE mg/dL (NEGATIVE) 06/08/17 15:30 Urine Blood NEGATIVE (NEGATIVE) 06/08/17 15:30 Urine Nitrate NEGATIVE (NEGATIVE) 06/08/17 15:30 Urine Bilirubin NEGATIVE (NEGATIVE) 06/08/17 15:30 Urine Urobilinogen 1.0 E.U./dL (0.2 - 1.0) 06/08/17 15:30 Ur Leukocyte Esterase NEGATIVE (NEGATIVE) 06/08/17 15:30 Urine RBC NONE SEEN /hpf (0-5) 06/08/17 15:30 Urine WBC 0-2 /hpf (0-5) 06/08/17 15:30 Ur Epithelial Cells RARE /lpf (FEW) 06/08/17 15:30 Calcium Oxalate Crystal FEW /hpf 06/08/17 15:30 Urine Bacteria OCCASIONAL /hpf (NONE SEEN) 06/08/17 15:30 - Physical Exam Vitals and I&O: Vital Signs Temp 96.2 F 06/11/17 04:00 Pulse 62 06/11/17 04:00 Resp 20 06/11/17 04:00 BP 99/50 06/11/17 04:00 Pulse Ox 99 06/11/17 04:00 Intake & Output 06/10/17 06/11/17 06/11/17 18:59 06:59 18:59 Intake Total 851.25 758.75 Balance 851.25 758.75 Weight (lbs) 59.012 kg 59.562 kg Intake: Intake, IV Amount 301.25 698.75 D5-0.45NS 1,000 ml @ 75 301.25 698.75 mls/hr IV .[id number] [facility] Rx #:[id number] Oral 550 60 Other: # Voids 3 3 # Bowel Movements 1 Stool Characteristics Soft Formed Brown Weight Source Bedscale Bedscale Active Medications: Current Medications Benztropine Mesylate (Cogentin) 1 mg PO BID [facility] Stop: 08/06/17 08:59 Last Admin: 06/10/17 16:53 Dose: 1 mg Cyproheptadine HCl (Periactin) 4 mg PO BID [facility] Stop: 08/06/17 08:59 Last Admin: 06/10/17 16:53 Dose: 4 mg Diphenhydramine HCl (Benadryl) 25 mg PO HS [facility] Stop: 08/06/17 20:59 Last Admin: 06/10/17 20:17 Dose: 25 mg Diphenhydramine HCl (Benadryl 50 Mg/Ml) 25 mg IM Q6HR PRN PRN Reason: Agitation Stop: 08/08/17 18:55 Divalproex Sodium (Depakote Sprinkle) 125 mg PO BID [facility] PRN Reason: Protocol Stop: 08/06/17 11:59 Last Admin: 06/10/17 16:52 Dose: 125 mg Gemfibrozil (Lopid) 600 mg PO BID [facility] Stop: 08/06/17 08:59 Last Admin: 06/10/17 16:53 Dose: 600 mg Haloperidol Lactate (Haldol) 3 mg IM Q6H PRN PRN Reason: Agitation Stop: 08/08/17 18:50 Hydroxyzine Pamoate (Vistaril) 50 mg PO TID [facility] PRN Reason: Protocol Stop: 08/06/17 08:59 Last Admin: 06/10/17 20:17 Dose: 50 mg Dextrose/Sodium Chloride (D5-0.45ns) 1,000 mls @ 75 mls/hr IV .[id number] [facility] Stop: 08/05/17 22:09 Last Admin: 06/11/17 05:33 Dose: 75 mls/hr Lorazepam (Ativan) 1 mg IVP Q6H PRN; Protocol PRN Reason: Agitation Stop: 08/05/17 22:09 Last Admin: 06/09/17 16:29 Dose: 1 mg Lorazepam (Ativan) 1 mg IM Q6H PRN; Protocol PRN Reason: Agitation Stop: 08/08/17 18:53 Mirtazapine (Remeron) 7.5 mg PO HS [facility] PRN Reason: Protocol Stop: 08/06/17 20:59 Last Admin: 06/10/17 20:17 Dose: 7.5 mg Multivitamins/Vitamin C (Theragran) 1 tab PO DAILY [facility] Stop: 08/06/17 08:59 Last Admin: 06/10/17 08:42 Dose: 1 tab Polyethylene Glycol (Miralax) 17 gm PO BID [facility] Stop: 08/08/17 12:14 Last Admin: 06/10/17 16:53 Dose: 17 gm Risperidone (Risperdal) 2 mg PO BID@0700,2100 [facility] Stop: 08/06/17 12:59 Last Admin: 06/11/17 06:17 Dose: Not Given General: No acute distress Neck: Supple Cardiovascular: Regular rate Abdomen: Bowel sounds, Soft, Distended, no Hepatomegaly, no Rebound, no Mass, no Guarding, no Obese Skin: no Rash Assessment/Plan - Assessment Assessment: # Anorexia # Constipation # Developmental delay CT scan shows colon full of stool, and this is likely to be contributing to his refusal to eat. Will try and help him clear stool with enemas and laxatives from above Plan: - tap water enema every 6 hours - miralax bid dosing - cont to try and encourage eating his meals - if he worsens, or does not improve, can consider NG insertion for bowel prep - may need PEG insertion if oral intake remains poor. - check calorie count. - serial KUB checks to assess constipation.
[2017-06-11] MEDS: POLYETHYLENE GLYCOL 3350 17 GM PACK PO SCH ×2 (08:54→16:47)
[2017-06-11] MEDS: Cyproheptadine 4 mg Tab PO SCH ×2 (08:55→16:47)
[2017-06-11] MEDS: Multivitamin Tab PO SCH (08:55)
[2017-06-11] MEDS: Benztropine 1 MG TAB PO SCH ×2 (08:55→16:47)
--- NOTE | 2017-06-11 10:25 | General Progress Note ---
Subjective - Review of Systems Events since last encounter: patient is awake confused denies pain poor appetite Objective - Results Result Diagrams: 06/10/17 06:30 06/10/17 06:30 Recent Labs: Laboratory Last Values WBC 6.1 Th/cmm (4.8-10.8) 06/10/17 06:30 RBC 5.14 Mil/cmm (4.30-5.70) 06/10/17 06:30 Hgb 14.0 gm/dL (12-16) 06/10/17 06:30 Hct 42.8 % (41.0-60) 06/10/17 06:30 MCV 83.4 fl (80-99) 06/10/17 06:30 MCH 27.3 pg (26.0-30.0) 06/10/17 06:30 MCHC Differential 32.8 pg (28.0-36.0) 06/10/17 06:30 RDW 14.3 % (11.5-20.0) 06/10/17 06:30 Plt Count 192 Th/cmm (150-400) 06/10/17 06:30 MPV 8.4 fl 06/10/17 06:30 Neutrophils % 44.7 % (40.0-80.0) 06/10/17 06:30 Lymphocytes % 47.5 % (20.0-50.0) 06/10/17 06:30 Monocytes % 6.4 % (2.0-10.0) 06/10/17 06:30 Eosinophils % 1.0 % (0.0-5.0) 06/10/17 06:30 Basophils % 0.4 % (0.0-2.0) 06/10/17 06:30 Sodium 141 mEq/L (136-145) 06/10/17 06:30 Potassium 3.2 mEq/L (3.5-5.1) L 06/10/17 06:30 Chloride 108 mEq/L (98-107) H 06/10/17 06:30 Carbon Dioxide 25.8 mEq/L (21.0-31.0) 06/10/17 06:30 Anion Gap 10.4 (7.0-16.0) 06/10/17 06:30 BUN 5 mg/dL (7-25) L 06/10/17 06:30 Creatinine 0.6 mg/dL (0.7-1.3) L 06/10/17 06:30 Est GFR ( Amer) > 60.0 ml/min (>90) 06/10/17 06:30 Est GFR (Non-Af Amer) > 60.0 ml/min 06/10/17 06:30 BUN/Creatinine Ratio 8.3 06/10/17 06:30 Glucose 81 mg/dL (70-105) 06/10/17 06:30 Calcium 9.4 mg/dL (8.6-10.3) 06/10/17 06:30 Troponin I < 0.01 ng/mL (0.01-0.05) L 06/06/17 18:13 Lipase 33 U/L (11-82) 06/06/17 18:13 Urine Source CLEAN C 06/08/17 15:30 Urine Color YELLOW 06/08/17 15:30 Urine Clarity SLIGHTLY HAZY (CLEAR) 06/08/17 15:30 Urine pH 6.0 (4.6 - 8.0) 06/08/17 15:30 Ur Specific [place] 1.025 (1.005-1.030) 06/08/17 15:30 Urine Protein NEGATIVE mg/dL (NEGATIVE) 06/08/17 15:30 Urine Glucose (UA) NEGATIVE mg/dL (NEGATIVE) 06/08/17 15:30 Urine Ketones NEGATIVE mg/dL (NEGATIVE) 06/08/17 15:30 Urine Blood NEGATIVE (NEGATIVE) 06/08/17 15:30 Urine Nitrate NEGATIVE (NEGATIVE) 06/08/17 15:30 Urine Bilirubin NEGATIVE (NEGATIVE) 06/08/17 15:30 Urine Urobilinogen 1.0 E.U./dL (0.2 - 1.0) 06/08/17 15:30 Ur Leukocyte Esterase NEGATIVE (NEGATIVE) 06/08/17 15:30 Urine RBC NONE SEEN /hpf (0-5) 06/08/17 15:30 Urine WBC 0-2 /hpf (0-5) 06/08/17 15:30 Ur Epithelial Cells RARE /lpf (FEW) 06/08/17 15:30 Calcium Oxalate Crystal FEW /hpf 06/08/17 15:30 Urine Bacteria OCCASIONAL /hpf (NONE SEEN) 06/08/17 15:30 - Physical Exam Vitals and I&O: Vital Signs Temp 96.2 F 06/11/17 04:00 Pulse 62 06/11/17 04:00 Resp 20 06/11/17 04:00 BP 99/50 06/11/17 04:00 Pulse Ox 99 06/11/17 04:00 Intake & Output 06/10/17 06/11/17 06/11/17 18:59 06:59 18:59 Intake Total 851.25 758.75 Balance 851.25 758.75 Weight (lbs) 59.012 kg 59.562 kg Intake: Intake, IV Amount 301.25 698.75 D5-0.45NS 1,000 ml @ 75 301.25 698.75 mls/hr IV .[id number] [facility] Rx #:[id number] Oral 550 60 Other: # Voids 3 3 # Bowel Movements 1 Stool Characteristics Soft Formed Brown Weight Source Bedscale Bedscale Active Medications: Current Medications Benztropine Mesylate (Cogentin) 1 mg PO BID [facility] Stop: 08/06/17 08:59 Last Admin: 06/11/17 08:55 Dose: 1 mg Cyproheptadine HCl (Periactin) 4 mg PO BID [facility] Stop: 08/06/17 08:59 Last Admin: 06/11/17 08:55 Dose: 4 mg Diphenhydramine HCl (Benadryl) 25 mg PO HS [facility] Stop: 08/06/17 20:59 Last Admin: 06/10/17 20:17 Dose: 25 mg Diphenhydramine HCl (Benadryl 50 Mg/Ml) 25 mg IM Q6HR PRN PRN Reason: Agitation Stop: 08/08/17 18:55 Divalproex Sodium (Depakote Sprinkle) 125 mg PO BID [facility] PRN Reason: Protocol Stop: 08/06/17 11:59 Last Admin: 06/11/17 08:55 Dose: 125 mg Gemfibrozil (Lopid) 600 mg PO BID [facility] Stop: 08/06/17 08:59 Last Admin: 06/11/17 08:55 Dose: 600 mg Haloperidol Lactate (Haldol) 3 mg IM Q6H PRN PRN Reason: Agitation Stop: 08/08/17 18:50 Hydroxyzine Pamoate (Vistaril) 50 mg PO TID [facility] PRN Reason: Protocol Stop: 08/06/17 08:59 Last Admin: 06/11/17 08:54 Dose: 50 mg Dextrose/Sodium Chloride (D5-0.45ns) 1,000 mls @ 75 mls/hr IV .[id number] [facility] Stop: 08/05/17 22:09 Last Admin: 06/11/17 05:33 Dose: 75 mls/hr Lorazepam (Ativan) 1 mg IVP Q6H PRN; Protocol PRN Reason: Agitation Stop: 08/05/17 22:09 Last Admin: 06/09/17 16:29 Dose: 1 mg Lorazepam (Ativan) 1 mg IM Q6H PRN; Protocol PRN Reason: Agitation Stop: 08/08/17 18:53 Mirtazapine (Remeron) 7.5 mg PO HS [facility] PRN Reason: Protocol Stop: 08/06/17 20:59 Last Admin: 06/10/17 20:17 Dose: 7.5 mg Multivitamins/Vitamin C (Theragran) 1 tab PO DAILY [facility] Stop: 08/06/17 08:59 Last Admin: 06/11/17 08:55 Dose: 1 tab Polyethylene Glycol (Miralax) 17 gm PO BID [facility] Stop: 08/08/17 12:14 Last Admin: 06/11/17 08:54 Dose: 17 gm Risperidone (Risperdal) 2 mg PO BID@0700,2100 [facility] Stop: 08/06/17 12:59 Last Admin: 06/11/17 06:17 Dose: Not Given General: No acute distress Neck: Supple Cardiovascular: Regular rate Abdomen: Bowel sounds, Soft, Distended, no Hepatomegaly, no Rebound, no Mass, no Guarding, no Obese Skin: no Rash Nutritional Asmnt/Malnutr-PDOC - Dietary Evaluation Malnutrition Findings (Please click <Entered> for more info): Nutritional Asmnt/Malnutrition Start: 06/07/17 15: 37 Text: Status: Complete Freq: Document 06/07/17 15:37 VIKRAM (Rec: 06/07/17 15:47 [email or web address]) Nutritional Asmnt/Malnutrition Patient General Information Nutritional Screening High Risk Consult Diagnosis ALOC, poor oral intake Pertinent Medical Hx/Surgical Hx dementia Subjective Information Consult received for poor PO intake. Pt seen sitting up in bed, confused, avoid eye contact, not able to communicate. Per ACCESS SERVICE REPRESENTATIVE, pt was sleeping and had no breakfast. Pt still refused lunch, and trying to get out of bed multiple times. Per note, pt is easily agitated, pull iv. Current Diet Order/ Nutrition Support regular Pertinent Medications D5-0.45ns, remeron, theragran Pertinent Labs 06/07 K 3.1 Nutritional Hx/Data Height 1.52 m Height (Calculated Centimeters) 152.4 Current Weight (lbs) 55.792 kg Weight (Calculated Kilograms) 55.8 Weight (Calculated Grams) 87200.9 [place] Body Weight 106 Body Mass Index (BMI) 24.0 Weight Status Approriate GI Symptoms GI Symptoms None Last BM no record Difficult in: None Skin Integrity/Comment: intact Estimated Nutritional Goals BEE in Kcals: Using Current wt Calories/Kcals/Kg 25-30 Kcals Calculated 6909-2720 Protein: Using Current wt Protein g/k.8-1 Protein Calculated 45-56 Fluid: ml 1400-1680ml (1ml/kcal) Nutritional Problem 1. Problem Problem inadequate food intake Etiology mental status Signs/Symptoms: PO intake<25% Malnutrition Alert Protein-Calorie Malnutrition N/A Is there a minimum of two criteria No selected? Query Text:Check all the applicable criteria. A minimum of two criteria are recommended for diagnosis of either severe or non-severe malnutrition. Intervention/Recommendation Comments 1. Continue with current diet as ordered. Assist with feeding and encourage eating meals and snacks between meals . 2. Monitor PO intake, wt, labs and skin integrity 3. F/U as high risk in 2-3 days, 06/08-06/09 Expected Outcomes/Goals Expected Outcomes/Goals 1. PO intake to meet at least 75% of nutritional needs. 2. Wt stability, skin to remain intact, labs to approach WNL.
--- NOTE | 2017-06-11 10:36 | Diagnostic Imaging Report ---
KUB single view HISTORY: Constipation. COMPARISON: CT abdomen and pelvis on 06/08/2017 FINDINGS: Moderate amount of stool is seen greatest within the right colon with generalized gas-filled loops of bowel. The osseous structures are intact. IMPRESSION: Moderate amount of stool greatest in the right colon with generalized gas-filled loops of bowel possibly representing a mild ileus.
[2017-06-12] MEDS: Multivitamin Tab PO SCH (09:21)
[2017-06-12] MEDS: Cyproheptadine 4 mg Tab PO SCH ×2 (09:22→17:05)
[2017-06-12] MEDS: Benztropine 1 MG TAB PO SCH ×2 (09:22→17:05)
[2017-06-12] MEDS: POLYETHYLENE GLYCOL 3350 17 GM PACK PO SCH ×2 (09:22→17:16)
--- NOTE | 2017-06-12 09:22 | GI Progress Note ---
Subjective - Review of Systems Service Date: 06/12/17 Subjective: Eating about 10% of his meals Objective - Results Result Diagrams: 06/10/17 06:30 06/10/17 06:30 Recent Labs: Laboratory Last Values WBC 6.1 Th/cmm (4.8-10.8) 06/10/17 06:30 RBC 5.14 Mil/cmm (4.30-5.70) 06/10/17 06:30 Hgb 14.0 gm/dL (12-16) 06/10/17 06:30 Hct 42.8 % (41.0-60) 06/10/17 06:30 MCV 83.4 fl (80-99) 06/10/17 06:30 MCH 27.3 pg (26.0-30.0) 06/10/17 06:30 MCHC Differential 32.8 pg (28.0-36.0) 06/10/17 06:30 RDW 14.3 % (11.5-20.0) 06/10/17 06:30 Plt Count 192 Th/cmm (150-400) 06/10/17 06:30 MPV 8.4 fl 06/10/17 06:30 Neutrophils % 44.7 % (40.0-80.0) 06/10/17 06:30 Lymphocytes % 47.5 % (20.0-50.0) 06/10/17 06:30 Monocytes % 6.4 % (2.0-10.0) 06/10/17 06:30 Eosinophils % 1.0 % (0.0-5.0) 06/10/17 06:30 Basophils % 0.4 % (0.0-2.0) 06/10/17 06:30 Sodium 141 mEq/L (136-145) 06/10/17 06:30 Potassium 3.2 mEq/L (3.5-5.1) L 06/10/17 06:30 Chloride 108 mEq/L (98-107) H 06/10/17 06:30 Carbon Dioxide 25.8 mEq/L (21.0-31.0) 06/10/17 06:30 Anion Gap 10.4 (7.0-16.0) 06/10/17 06:30 BUN 5 mg/dL (7-25) L 06/10/17 06:30 Creatinine 0.6 mg/dL (0.7-1.3) L 06/10/17 06:30 Est GFR ( Amer) > 60.0 ml/min (>90) 06/10/17 06:30 Est GFR (Non-Af Amer) > 60.0 ml/min 06/10/17 06:30 BUN/Creatinine Ratio 8.3 06/10/17 06:30 Glucose 81 mg/dL (70-105) 06/10/17 06:30 Calcium 9.4 mg/dL (8.6-10.3) 06/10/17 06:30 Troponin I < 0.01 ng/mL (0.01-0.05) L 06/06/17 18:13 Lipase 33 U/L (11-82) 06/06/17 18:13 Urine Source CLEAN C 06/08/17 15:30 Urine Color YELLOW 06/08/17 15:30 Urine Clarity SLIGHTLY HAZY (CLEAR) 06/08/17 15:30 Urine pH 6.0 (4.6 - 8.0) 06/08/17 15:30 Ur Specific [place] 1.025 (1.005-1.030) 06/08/17 15:30 Urine Protein NEGATIVE mg/dL (NEGATIVE) 06/08/17 15:30 Urine Glucose (UA) NEGATIVE mg/dL (NEGATIVE) 06/08/17 15:30 Urine Ketones NEGATIVE mg/dL (NEGATIVE) 06/08/17 15:30 Urine Blood NEGATIVE (NEGATIVE) 06/08/17 15:30 Urine Nitrate NEGATIVE (NEGATIVE) 06/08/17 15:30 Urine Bilirubin NEGATIVE (NEGATIVE) 06/08/17 15:30 Urine Urobilinogen 1.0 E.U./dL (0.2 - 1.0) 06/08/17 15:30 Ur Leukocyte Esterase NEGATIVE (NEGATIVE) 06/08/17 15:30 Urine RBC NONE SEEN /hpf (0-5) 06/08/17 15:30 Urine WBC 0-2 /hpf (0-5) 06/08/17 15:30 Ur Epithelial Cells RARE /lpf (FEW) 06/08/17 15:30 Calcium Oxalate Crystal FEW /hpf 06/08/17 15:30 Urine Bacteria OCCASIONAL /hpf (NONE SEEN) 06/08/17 15:30 - Physical Exam Vitals and I&O: Vital Signs Temp 970 F 06/12/17 04:00 Pulse 96 06/12/17 06:00 Resp 18 06/12/17 06:00 BP 97/48 06/12/17 04:00 Pulse Ox 96 06/12/17 04:00 Intake & Output 06/11/17 06/12/17 06/12/17 18:59 06:59 18:59 Intake Total 1450.0 Balance 1450.0 Weight (lbs) 59.511 kg 59.421 kg Intake: Intake, IV Amount 1000.0 D5-0.45NS 1,000 ml @ 75 1000.0 mls/hr IV .[id number] [facility] Rx #:[id number] Oral 450 Other: # Voids 3 3 # Bowel Movements 1 Weight Source Bedscale Bedscale Active Medications: Current Medications Benztropine Mesylate (Cogentin) 1 mg PO BID [facility] Stop: 08/06/17 08:59 Last Admin: 06/11/17 16:47 Dose: 1 mg Cyproheptadine HCl (Periactin) 4 mg PO BID [facility] Stop: 08/06/17 08:59 Last Admin: 06/11/17 16:47 Dose: 4 mg Diphenhydramine HCl (Benadryl) 25 mg PO HS [facility] Stop: 08/06/17 20:59 Last Admin: 06/11/17 21:10 Dose: Not Given Diphenhydramine HCl (Benadryl 50 Mg/Ml) 25 mg IM Q6HR PRN PRN Reason: Agitation Stop: 08/08/17 18:55 Divalproex Sodium (Depakote Sprinkle) 125 mg PO BID [facility] PRN Reason: Protocol Stop: 08/06/17 11:59 Last Admin: 06/11/17 16:47 Dose: 125 mg Gemfibrozil (Lopid) 600 mg PO BID [facility] Stop: 08/06/17 08:59 Last Admin: 06/11/17 16:47 Dose: 600 mg Haloperidol Lactate (Haldol) 3 mg IM Q6H PRN PRN Reason: Agitation Stop: 08/08/17 18:50 Hydroxyzine Pamoate (Vistaril) 50 mg PO TID [facility] PRN Reason: Protocol Stop: 08/06/17 08:59 Last Admin: 06/11/17 21:10 Dose: Not Given Dextrose/Sodium Chloride (D5-0.45ns) 1,000 mls @ 75 mls/hr IV .[id number] [facility] Stop: 08/05/17 22:09 Last Admin: 06/11/17 21:11 Dose: 75 mls/hr Cefazolin Sodium 1 gm/ Sodium (Chloride) 50 mls @ 100 mls/hr IV X1 ONE Stop: 06/13/17 07:59 Lorazepam (Ativan) 1 mg IVP Q6H PRN; Protocol PRN Reason: Agitation Stop: 08/05/17 22:09 Last Admin: 06/12/17 00:32 Dose: 1 mg Lorazepam (Ativan) 1 mg IM Q6H PRN; Protocol PRN Reason: Agitation Stop: 08/08/17 18:53 Mirtazapine (Remeron) 7.5 mg PO HS [facility] PRN Reason: Protocol Stop: 08/06/17 20:59 Last Admin: 06/11/17 21:10 Dose: Not Given Multivitamins/Vitamin C (Theragran) 1 tab PO DAILY [facility] Stop: 08/06/17 08:59 Last Admin: 06/11/17 08:55 Dose: 1 tab Polyethylene Glycol (Miralax) 17 gm PO BID [facility] Stop: 08/08/17 12:14 Last Admin: 06/11/17 16:47 Dose: 17 gm Risperidone (Risperdal) 2 mg PO BID@0700,2100 [facility] Stop: 08/06/17 12:59 Last Admin: 06/12/17 07:22 Dose: Not Given General: No acute distress Neck: Supple Cardiovascular: Regular rate Abdomen: Bowel sounds, Soft, Distended, no Hepatomegaly, no Rebound, no Mass, no Guarding, no Obese Skin: no Rash Assessment/Plan - Assessment Assessment: # Anorexia # Constipation # Developmental delay CT scan had showed constipation, but despite enemas and stool evacuation, the pt still is not taking in adequate po. At this point, it is likely there is a central component to his anorexia, and given he has not improved with his appetite, we will plan for G tube site placement tomorrow. This can be reversed in the future if the pt is able to once again take in nutrition. Plan: - plan for G tube tomorrow morning as discussed above. NPO midnight. Ancef 1 g 30min prior. Obtain consent today - miralax bid dosing
--- NOTE | 2017-06-12 15:25 | General Progress Note ---
Subjective - Review of Systems Events since last encounter: poor appetite in no distress Objective - Results Result Diagrams: 06/10/17 06:30 06/10/17 06:30 Recent Labs: Laboratory Last Values WBC 6.1 Th/cmm (4.8-10.8) 06/10/17 06:30 RBC 5.14 Mil/cmm (4.30-5.70) 06/10/17 06:30 Hgb 14.0 gm/dL (12-16) 06/10/17 06:30 Hct 42.8 % (41.0-60) 06/10/17 06:30 MCV 83.4 fl (80-99) 06/10/17 06:30 MCH 27.3 pg (26.0-30.0) 06/10/17 06:30 MCHC Differential 32.8 pg (28.0-36.0) 06/10/17 06:30 RDW 14.3 % (11.5-20.0) 06/10/17 06:30 Plt Count 192 Th/cmm (150-400) 06/10/17 06:30 MPV 8.4 fl 06/10/17 06:30 Neutrophils % 44.7 % (40.0-80.0) 06/10/17 06:30 Lymphocytes % 47.5 % (20.0-50.0) 06/10/17 06:30 Monocytes % 6.4 % (2.0-10.0) 06/10/17 06:30 Eosinophils % 1.0 % (0.0-5.0) 06/10/17 06:30 Basophils % 0.4 % (0.0-2.0) 06/10/17 06:30 Sodium 141 mEq/L (136-145) 06/10/17 06:30 Potassium 3.2 mEq/L (3.5-5.1) L 06/10/17 06:30 Chloride 108 mEq/L (98-107) H 06/10/17 06:30 Carbon Dioxide 25.8 mEq/L (21.0-31.0) 06/10/17 06:30 Anion Gap 10.4 (7.0-16.0) 06/10/17 06:30 BUN 5 mg/dL (7-25) L 06/10/17 06:30 Creatinine 0.6 mg/dL (0.7-1.3) L 06/10/17 06:30 Est GFR ( Amer) > 60.0 ml/min (>90) 06/10/17 06:30 Est GFR (Non-Af Amer) > 60.0 ml/min 06/10/17 06:30 BUN/Creatinine Ratio 8.3 06/10/17 06:30 Glucose 81 mg/dL (70-105) 06/10/17 06:30 Calcium 9.4 mg/dL (8.6-10.3) 06/10/17 06:30 Troponin I < 0.01 ng/mL (0.01-0.05) L 06/06/17 18:13 Lipase 33 U/L (11-82) 06/06/17 18:13 Urine Source CLEAN C 06/08/17 15:30 Urine Color YELLOW 06/08/17 15:30 Urine Clarity SLIGHTLY HAZY (CLEAR) 06/08/17 15:30 Urine pH 6.0 (4.6 - 8.0) 06/08/17 15:30 Ur Specific [place] 1.025 (1.005-1.030) 06/08/17 15:30 Urine Protein NEGATIVE mg/dL (NEGATIVE) 06/08/17 15:30 Urine Glucose (UA) NEGATIVE mg/dL (NEGATIVE) 06/08/17 15:30 Urine Ketones NEGATIVE mg/dL (NEGATIVE) 06/08/17 15:30 Urine Blood NEGATIVE (NEGATIVE) 06/08/17 15:30 Urine Nitrate NEGATIVE (NEGATIVE) 06/08/17 15:30 Urine Bilirubin NEGATIVE (NEGATIVE) 06/08/17 15:30 Urine Urobilinogen 1.0 E.U./dL (0.2 - 1.0) 06/08/17 15:30 Ur Leukocyte Esterase NEGATIVE (NEGATIVE) 06/08/17 15:30 Urine RBC NONE SEEN /hpf (0-5) 06/08/17 15:30 Urine WBC 0-2 /hpf (0-5) 06/08/17 15:30 Ur Epithelial Cells RARE /lpf (FEW) 06/08/17 15:30 Calcium Oxalate Crystal FEW /hpf 06/08/17 15:30 Urine Bacteria OCCASIONAL /hpf (NONE SEEN) 06/08/17 15:30 - Physical Exam Vitals and I&O: Vital Signs Temp 96.6 F 06/12/17 08:00 Pulse 70 06/12/17 08:00 Resp 18 06/12/17 08:00 BP 100/68 06/12/17 08:00 Pulse Ox 96 06/12/17 08:00 Intake & Output 06/11/17 06/12/17 06/12/17 18:59 06:59 18:59 Intake Total 1450.0 Balance 1450.0 Weight (lbs) 59.511 kg 59.421 kg Intake: Intake, IV Amount 1000.0 D5-0.45NS 1,000 ml @ 75 1000.0 mls/hr IV .[id number] [facility] Rx #:[id number] Oral 450 Other: # Voids 3 3 # Bowel Movements 1 Weight Source Bedscale Bedscale Active Medications: Current Medications Benztropine Mesylate (Cogentin) 1 mg PO BID [facility] Stop: 08/06/17 08:59 Last Admin: 06/12/17 09:22 Dose: 1 mg Cyproheptadine HCl (Periactin) 4 mg PO BID [facility] Stop: 08/06/17 08:59 Last Admin: 06/12/17 09:22 Dose: 4 mg Diphenhydramine HCl (Benadryl) 25 mg PO HS [facility] Stop: 08/06/17 20:59 Last Admin: 06/11/17 21:10 Dose: Not Given Diphenhydramine HCl (Benadryl 50 Mg/Ml) 25 mg IM Q6HR PRN PRN Reason: Agitation Stop: 08/08/17 18:55 Divalproex Sodium (Depakote Sprinkle) 125 mg PO BID [facility] PRN Reason: Protocol Stop: 08/06/17 11:59 Last Admin: 06/12/17 09:21 Dose: 125 mg Gemfibrozil (Lopid) 600 mg PO BID [facility] Stop: 08/06/17 08:59 Last Admin: 06/12/17 09:21 Dose: 600 mg Haloperidol Lactate (Haldol) 3 mg IM Q6H PRN PRN Reason: Agitation Stop: 08/08/17 18:50 Hydroxyzine Pamoate (Vistaril) 50 mg PO TID [facility] PRN Reason: Protocol Stop: 08/06/17 08:59 Last Admin: 06/12/17 13:05 Dose: 50 mg Dextrose/Sodium Chloride (D5-0.45ns) 1,000 mls @ 75 mls/hr IV .[id number] [facility] Stop: 08/05/17 22:09 Last Admin: 06/11/17 21:11 Dose: 75 mls/hr Cefazolin Sodium 1 gm/ Sodium (Chloride) 50 mls @ 100 mls/hr IV X1 [facility] Stop: 06/13/17 07:59 Lorazepam (Ativan) 1 mg IVP Q6H PRN; Protocol PRN Reason: Agitation Stop: 08/05/17 22:09 Last Admin: 06/12/17 00:32 Dose: 1 mg Lorazepam (Ativan) 1 mg IM Q6H PRN; Protocol PRN Reason: Agitation Stop: 08/08/17 18:53 Mirtazapine (Remeron) 7.5 mg PO HS [facility] PRN Reason: Protocol Stop: 08/06/17 20:59 Last Admin: 06/11/17 21:10 Dose: Not Given Multivitamins/Vitamin C (Theragran) 1 tab PO DAILY [facility] Stop: 08/06/17 08:59 Last Admin: 06/12/17 09:21 Dose: 1 tab Polyethylene Glycol (Miralax) 17 gm PO BID [facility] Stop: 08/08/17 12:14 Last Admin: 06/12/17 09:22 Dose: 17 gm Risperidone (Risperdal) 2 mg PO BID@0700,2100 [facility] Stop: 08/06/17 12:59 Last Admin: 06/12/17 07:22 Dose: Not Given General: No acute distress Neck: Supple Cardiovascular: Regular rate Abdomen: Bowel sounds, Soft, Distended, no Hepatomegaly, no Rebound, no Mass, no Guarding, no Obese Skin: no Rash Nutritional Asmnt/Malnutr-PDOC - Dietary Evaluation Malnutrition Findings (Please click <Entered> for more info): Nutritional Asmnt/Malnutrition Start: 06/07/17 15: 37 Text: Status: Complete Freq: Document 06/07/17 15:37 [email or web address] (Rec: 06/07/17 15:47 [email or web address]) Nutritional Asmnt/Malnutrition Patient General Information Nutritional Screening High Risk Consult Diagnosis ALOC, poor oral intake Pertinent Medical Hx/Surgical Hx dementia Subjective Information Consult received for poor PO intake. Pt seen sitting up in bed, confused, avoid eye contact, not able to communicate. Per [employer], pt was sleeping and had no breakfast. Pt still refused lunch, and trying to get out of bed multiple times. Per note, pt is easily agitated, pull iv. Current Diet Order/ Nutrition Support regular Pertinent Medications D5-0.45ns, remeron, theragran Pertinent Labs 06/07 K 3.1 Nutritional Hx/Data Height 1.52 m Height (Calculated Centimeters) 152.4 Current Weight (lbs) 55.792 kg Weight (Calculated Kilograms) 55.8 Weight (Calculated Grams) 57159.9 [place] Body Weight 106 Body Mass Index (BMI) 24.0 Weight Status Approriate GI Symptoms GI Symptoms None Last BM no record Difficult in: None Skin Integrity/Comment: intact Estimated Nutritional Goals BEE in Kcals: Using Current wt Calories/Kcals/Kg 25-30 Kcals Calculated 1316-1011 Protein: Using Current wt Protein g/k.8-1 Protein Calculated 45-56 Fluid: ml 1400-1680ml (1ml/kcal) Nutritional Problem 1. Problem Problem inadequate food intake Etiology mental status Signs/Symptoms: PO intake<25% Malnutrition Alert Protein-Calorie Malnutrition N/A Is there a minimum of two criteria No selected? Query Text:Check all the applicable criteria. A minimum of two criteria are recommended for diagnosis of either severe or non-severe malnutrition. Intervention/Recommendation Comments 1. Continue with current diet as ordered. Assist with feeding and encourage eating meals and snacks between meals . 2. Monitor PO intake, wt, labs and skin integrity 3. F/U as high risk in 2-3 days, 06/08-06/09 Expected Outcomes/Goals Expected Outcomes/Goals 1. PO intake to meet at least 75% of nutritional needs. 2. Wt stability, skin to remain intact, labs to approach WNL.
[2017-06-12] MEDS: D5-0.45NS 1,000 ML IV SCH (17:26)
[2017-06-13 05:58] LABS: % BASOPHILS 0.2 % (0.0-2.0); % EOSINOPHILS 1.6 % (0.0-5.0); % LYMPHOCYTES 52.4 % (20.0-50.0); % MONOCYTES 6.3 % (2.0-10.0); % NEUTROPHILS 39.5 % (40.0-80.0); EOSINOPHILE ABSOLUTE 0.1 Th/cmm (0.1-0.4); HEMATOCRIT 43.5 % (41.0-60); HEMOGLOBIN 14.4 gm/dL (12-16); LYMPHOCYTE ABSOLUTE 3.9 Th/cmm (1.5-3.0); MEAN CORPUSCULAR HEMOGLOBIN 27.8 pg (26.0-30.0); MEAN CORPUSCULAR HGB CONC 33.1 pg (28.0-36.0); MONOCYTE ABSOLUTE 0.5 Th/cmm (0.3-1.0); NEUTROPHILE ABSOLUTE 2.9 Th/cmm (1.8-8.0); PLATELET COUNT 200 Th/cmm (150-400); RED BLOOD COUNT 5.18 Mil/cmm (4.30-5.70); RED CELL DISTRIBUTION WIDTH 14.9 % (11.5-20.0); WHITE BLOOD COUNT 7.4 Th/cmm (4.8-10.8)
[2017-06-13 06:09] LABS: ANION GAP 11.3 (7.0-16.0); BUN - UREA NITROGEN 5 mg/dL (7-25); CALCIUM SERUM 9.3 mg/dL (8.6-10.3); CHLORIDE 107 mEq/L (98-107); CREATININE - SERUM 0.7 mg/dL (0.7-1.3); GFR AFRICAN-AMERICAN > 60.0 ml/min (>90); GFR NON AFRICAN-AMERICAN > 60.0 ml/min; GLUCOSE 96 mg/dL (70-105); POTASSIUM SERUM 3.3 mEq/L (3.5-5.1); SODIUM SERUM 140 mEq/L (136-145)
[2017-06-13 06:10] LABS: INR 0.96 (0.5-1.4)
[2017-06-13] MEDS: D5-0.45NS 1,000 ML IV SCH (06:30)
[2017-06-13] MEDS ORDERED: ceFAZolin 1 GM in Sodium Chloride 0.9% 50 ML IV ONE (07:30)
--- NOTE | 2017-06-13 09:57 | GI Progress Note ---
Subjective - Review of Systems Subjective: Pt ate complete meals with his sister yesterday, she did not want G tube placed Objective - Results Result Diagrams: 06/13/17 05:45 06/13/17 05:45 Recent Labs: Laboratory Last Values WBC 7.4 Th/cmm (4.8-10.8) 06/13/17 05:45 RBC 5.18 Mil/cmm (4.30-5.70) 06/13/17 05:45 Hgb 14.4 gm/dL (12-16) 06/13/17 05:45 Hct 43.5 % (41.0-60) 06/13/17 05:45 MCV 84.0 fl (80-99) 06/13/17 05:45 MCH 27.8 pg (26.0-30.0) 06/13/17 05:45 MCHC Differential 33.1 pg (28.0-36.0) 06/13/17 05:45 RDW 14.9 % (11.5-20.0) 06/13/17 05:45 Plt Count 200 Th/cmm (150-400) 06/13/17 05:45 MPV 8.0 fl 06/13/17 05:45 Neutrophils % 39.5 % (40.0-80.0) L 06/13/17 05:45 Lymphocytes % 52.4 % (20.0-50.0) H 06/13/17 05:45 Monocytes % 6.3 % (2.0-10.0) 06/13/17 05:45 Eosinophils % 1.6 % (0.0-5.0) 06/13/17 05:45 Basophils % 0.2 % (0.0-2.0) 06/13/17 05:45 PT 10.0 SECONDS (9.5-11.5) 06/13/17 05:45 INR 0.96 (0.5-1.4) 06/13/17 05:45 Sodium 140 mEq/L (136-145) 06/13/17 05:45 Potassium 3.3 mEq/L (3.5-5.1) L 06/13/17 05:45 Chloride 107 mEq/L (98-107) 06/13/17 05:45 Carbon Dioxide 25.0 mEq/L (21.0-31.0) 06/13/17 05:45 Anion Gap 11.3 (7.0-16.0) 06/13/17 05:45 BUN 5 mg/dL (7-25) L 06/13/17 05:45 Creatinine 0.7 mg/dL (0.7-1.3) 06/13/17 05:45 Est GFR ( Amer) > 60.0 ml/min (>90) 06/13/17 05:45 Est GFR (Non-Af Amer) > 60.0 ml/min 06/13/17 05:45 BUN/Creatinine Ratio 7.1 06/13/17 05:45 Glucose 96 mg/dL (70-105) 06/13/17 05:45 Calcium 9.3 mg/dL (8.6-10.3) 06/13/17 05:45 Troponin I < 0.01 ng/mL (0.01-0.05) L 06/06/17 18:13 Lipase 33 U/L (11-82) 06/06/17 18:13 Urine Source CLEAN C 06/08/17 15:30 Urine Color YELLOW 06/08/17 15:30 Urine Clarity SLIGHTLY HAZY (CLEAR) 06/08/17 15:30 Urine pH 6.0 (4.6 - 8.0) 06/08/17 15:30 Ur Specific [place] 1.025 (1.005-1.030) 06/08/17 15:30 Urine Protein NEGATIVE mg/dL (NEGATIVE) 06/08/17 15:30 Urine Glucose (UA) NEGATIVE mg/dL (NEGATIVE) 06/08/17 15:30 Urine Ketones NEGATIVE mg/dL (NEGATIVE) 06/08/17 15:30 Urine Blood NEGATIVE (NEGATIVE) 06/08/17 15:30 Urine Nitrate NEGATIVE (NEGATIVE) 06/08/17 15:30 Urine Bilirubin NEGATIVE (NEGATIVE) 06/08/17 15:30 Urine Urobilinogen 1.0 E.U./dL (0.2 - 1.0) 06/08/17 15:30 Ur Leukocyte Esterase NEGATIVE (NEGATIVE) 06/08/17 15:30 Urine RBC NONE SEEN /hpf (0-5) 06/08/17 15:30 Urine WBC 0-2 /hpf (0-5) 06/08/17 15:30 Ur Epithelial Cells RARE /lpf (FEW) 06/08/17 15:30 Calcium Oxalate Crystal FEW /hpf 06/08/17 15:30 Urine Bacteria OCCASIONAL /hpf (NONE SEEN) 06/08/17 15:30 - Physical Exam Vitals and I&O: Vital Signs Temp 96.6 F 06/13/17 06:00 Pulse 80 06/13/17 06:00 Resp 17 06/13/17 06:00 BP 103/65 06/13/17 06:00 Pulse Ox 98 06/13/17 04:00 Intake & Output 06/12/17 06/13/17 06/13/17 18:59 06:59 18:59 Intake Total 1600 980 Balance 1600 980 Weight (lbs) 59.421 kg Intake: Intake, IV Amount 1000 980 D5-0.45NS 1,000 ml @ 75 1000 980 mls/hr IV .[id number] [facility] Rx #:[id number] Oral 600 Other: # Voids 3 # Bowel Movements 1 Weight Source Bedscale Active Medications: Current Medications Benztropine Mesylate (Cogentin) 1 mg PO BID [facility] Stop: 08/06/17 08:59 Last Admin: 06/12/17 17:05 Dose: 1 mg Cyproheptadine HCl (Periactin) 4 mg PO BID [facility] Stop: 08/06/17 08:59 Last Admin: 06/12/17 17:05 Dose: 4 mg Diphenhydramine HCl (Benadryl) 25 mg PO [facility] Stop: 08/06/17 20:59 Last Admin: 06/12/17 20:41 Dose: 25 mg Diphenhydramine HCl (Benadryl 50 Mg/Ml) 25 mg IM Q6HR PRN PRN Reason: Agitation Stop: 08/08/17 18:55 Divalproex Sodium (Depakote Sprinkle) 125 mg PO BID [facility] PRN Reason: Protocol Stop: 08/06/17 11:59 Last Admin: 06/12/17 17:05 Dose: 125 mg Gemfibrozil (Lopid) 600 mg PO BID [facility] Stop: 08/06/17 08:59 Last Admin: 06/12/17 17:05 Dose: 600 mg Haloperidol Lactate (Haldol) 3 mg IM Q6H PRN PRN Reason: Agitation Stop: 08/08/17 18:50 Hydroxyzine Pamoate (Vistaril) 50 mg PO TID [facility] PRN Reason: Protocol Stop: 08/06/17 08:59 Last Admin: 06/12/17 20:41 Dose: 50 mg Dextrose/Sodium Chloride (D5-0.45ns) 1,000 mls @ 75 mls/hr IV .[id number] [facility] Stop: 08/05/17 22:09 Last Admin: 06/13/17 06:30 Dose: 75 mls/hr Lorazepam (Ativan) 1 mg IVP Q6H PRN; Protocol PRN Reason: Agitation Stop: 08/05/17 22:09 Last Admin: 06/12/17 00:32 Dose: 1 mg Lorazepam (Ativan) 1 mg IM Q6H PRN; Protocol PRN Reason: Agitation Stop: 08/08/17 18:53 Mirtazapine (Remeron) 7.5 mg PO HS [facility] PRN Reason: Protocol Stop: 08/06/17 20:59 Last Admin: 06/12/17 20:42 Dose: 7.5 mg Multivitamins/Vitamin C (Theragran) 1 tab PO DAILY [facility] Stop: 08/06/17 08:59 Last Admin: 06/12/17 09:21 Dose: 1 tab Polyethylene Glycol (Miralax) 17 gm PO BID [facility] Stop: 08/08/17 12:14 Last Admin: 06/12/17 17:16 Dose: 17 gm Risperidone (Risperdal) 2 mg PO BID@0700,2100 [facility] Stop: 08/06/17 12:59 Last Admin: 06/13/17 06:25 Dose: Not Given General: No acute distress Neck: Supple Cardiovascular: Regular rate Abdomen: Bowel sounds, Soft, Distended, no Hepatomegaly, no Rebound, no Mass, no Guarding, no Obese Skin: no Rash Assessment/Plan - Assessment Assessment: # Anorexia # Constipation # Developmental delay CT scan had showed constipation, but despite enemas and stool evacuation, pt observed to intermittently take in adequate nutrition. Spoke with the pt's sister on 06/12 at bedside, and pt was observed to eat all of the food she brought him. She notes he only will eat the food he likes, and that he will eat his meals when presented by his family. She does not want a feeding tube at this time. Plan: - No G tube given that the pt' sister does not want to consent for this, and that the pt will eat food he likes - miralax bid dosing to prevent constipation GI to see as needed, or if the family will consent for G tube in the future. Please call with any questions.
[2017-06-13] MEDS: Benztropine 1 MG TAB PO SCH ×2 (10:30→18:24)
[2017-06-13] MEDS: Cyproheptadine 4 mg Tab PO SCH ×2 (10:30→18:24)
[2017-06-13] MEDS: POLYETHYLENE GLYCOL 3350 17 GM PACK PO SCH ×2 (10:31→18:24)
[2017-06-13] MEDS: Multivitamin Tab PO SCH (10:31)
[2017-06-13] MEDS ORDERED: Potassium Chloride 20 mEq ER Tab PO ONE (12:43)
--- NOTE | 2017-06-13 13:05 | Internal Medicine Prog Note ---
Internal Medicine Subjective - Subjective Service Date: 06/13/17 Patient is:: awake Per staff patient has:: tolerating meds Internal Medicine Objective - Results Result Diagrams: 06/13/17 05:45 06/13/17 05:45 Recent Labs: Laboratory Last Values WBC 7.4 Th/cmm (4.8-10.8) 06/13/17 05:45 RBC 5.18 Mil/cmm (4.30-5.70) 06/13/17 05:45 Hgb 14.4 gm/dL (12-16) 06/13/17 05:45 Hct 43.5 % (41.0-60) 06/13/17 05:45 MCV 84.0 fl (80-99) 06/13/17 05:45 MCH 27.8 pg (26.0-30.0) 06/13/17 05:45 MCHC Differential 33.1 pg (28.0-36.0) 06/13/17 05:45 RDW 14.9 % (11.5-20.0) 06/13/17 05:45 Plt Count 200 Th/cmm (150-400) 06/13/17 05:45 MPV 8.0 fl 06/13/17 05:45 Neutrophils % 39.5 % (40.0-80.0) L 06/13/17 05:45 Lymphocytes % 52.4 % (20.0-50.0) H 06/13/17 05:45 Monocytes % 6.3 % (2.0-10.0) 06/13/17 05:45 Eosinophils % 1.6 % (0.0-5.0) 06/13/17 05:45 Basophils % 0.2 % (0.0-2.0) 06/13/17 05:45 PT 10.0 SECONDS (9.5-11.5) 06/13/17 05:45 INR 0.96 (0.5-1.4) 06/13/17 05:45 Sodium 140 mEq/L (136-145) 06/13/17 05:45 Potassium 3.3 mEq/L (3.5-5.1) L 06/13/17 05:45 Chloride 107 mEq/L (98-107) 06/13/17 05:45 Carbon Dioxide 25.0 mEq/L (21.0-31.0) 06/13/17 05:45 Anion Gap 11.3 (7.0-16.0) 06/13/17 05:45 BUN 5 mg/dL (7-25) L 06/13/17 05:45 Creatinine 0.7 mg/dL (0.7-1.3) 06/13/17 05:45 Est GFR ( Amer) > 60.0 ml/min (>90) 06/13/17 05:45 Est GFR (Non-Af Amer) > 60.0 ml/min 06/13/17 05:45 BUN/Creatinine Ratio 7.1 06/13/17 05:45 Glucose 96 mg/dL (70-105) 06/13/17 05:45 Calcium 9.3 mg/dL (8.6-10.3) 06/13/17 05:45 Troponin I < 0.01 ng/mL (0.01-0.05) L 06/06/17 18:13 Lipase 33 U/L (11-82) 06/06/17 18:13 Urine Source CLEAN C 06/08/17 15:30 Urine Color YELLOW 06/08/17 15:30 Urine Clarity SLIGHTLY HAZY (CLEAR) 06/08/17 15:30 Urine pH 6.0 (4.6 - 8.0) 06/08/17 15:30 Ur Specific [place] 1.025 (1.005-1.030) 06/08/17 15:30 Urine Protein NEGATIVE mg/dL (NEGATIVE) 06/08/17 15:30 Urine Glucose (UA) NEGATIVE mg/dL (NEGATIVE) 06/08/17 15:30 Urine Ketones NEGATIVE mg/dL (NEGATIVE) 06/08/17 15:30 Urine Blood NEGATIVE (NEGATIVE) 06/08/17 15:30 Urine Nitrate NEGATIVE (NEGATIVE) 06/08/17 15:30 Urine Bilirubin NEGATIVE (NEGATIVE) 06/08/17 15:30 Urine Urobilinogen 1.0 E.U./dL (0.2 - 1.0) 06/08/17 15:30 Ur Leukocyte Esterase NEGATIVE (NEGATIVE) 06/08/17 15:30 Urine RBC NONE SEEN /hpf (0-5) 06/08/17 15:30 Urine WBC 0-2 /hpf (0-5) 06/08/17 15:30 Ur Epithelial Cells RARE /lpf (FEW) 06/08/17 15:30 Calcium Oxalate Crystal FEW /hpf 06/08/17 15:30 Urine Bacteria OCCASIONAL /hpf (NONE SEEN) 06/08/17 15:30 - Physical Exam Vitals and I&O: Vital Signs Temp 97.4 F 06/13/17 12:00 Pulse 89 06/13/17 12:00 Resp 17 06/13/17 12:00 BP 103/89 06/13/17 12:00 Pulse Ox 97 06/13/17 12:00 Intake & Output 06/12/17 06/13/17 06/13/17 18:59 06:59 18:59 Intake Total 1600 980 Balance 1600 980 Weight (lbs) 131 lb Intake: Intake, IV Amount 1000 980 D5-0.45NS 1,000 ml @ 75 1000 980 mls/hr IV .[id number] [facility] Rx #:[id number] Oral 600 Other: # Voids 3 # Bowel Movements 1 Weight Source Bedscale Active Medications: Current Medications Benztropine Mesylate (Cogentin) 1 mg PO BID [facility] Stop: 08/06/17 08:59 Last Admin: 06/13/17 10:30 Dose: 1 mg Cyproheptadine HCl (Periactin) 4 mg PO BID [facility] Stop: 08/06/17 08:59 Last Admin: 06/13/17 10:30 Dose: 4 mg Diphenhydramine HCl (Benadryl) 25 mg PO HS [facility] Stop: 08/06/17 20:59 Last Admin: 06/12/17 20:41 Dose: 25 mg Diphenhydramine HCl (Benadryl 50 Mg/Ml) 25 mg IM Q6HR PRN PRN Reason: Agitation Stop: 08/08/17 18:55 Divalproex Sodium (Depakote Sprinkle) 125 mg PO BID [facility] PRN Reason: Protocol Stop: 08/06/17 11:59 Last Admin: 06/13/17 10:30 Dose: 125 mg Gemfibrozil (Lopid) 600 mg PO BID [facility] Stop: 08/06/17 08:59 Last Admin: 06/13/17 10:31 Dose: 600 mg Haloperidol Lactate (Haldol) 3 mg IM Q6H PRN PRN Reason: Agitation Stop: 08/08/17 18:50 Hydroxyzine Pamoate (Vistaril) 50 mg PO TID [facility] PRN Reason: Protocol Stop: 08/06/17 08:59 Last Admin: 06/13/17 10:31 Dose: 50 mg Dextrose/Sodium Chloride (D5-0.45ns) 1,000 mls @ 75 mls/hr IV .[id number] [facility] Stop: 08/05/17 22:09 Last Admin: 06/13/17 06:30 Dose: 75 mls/hr Lorazepam (Ativan) 1 mg IVP Q6H PRN; Protocol PRN Reason: Agitation Stop: 08/05/17 22:09 Last Admin: 06/12/17 00:32 Dose: 1 mg Lorazepam (Ativan) 1 mg IM Q6H PRN; Protocol PRN Reason: Agitation Stop: 08/08/17 18:53 Mirtazapine (Remeron) 7.5 mg PO HS [facility] PRN Reason: Protocol Stop: 08/06/17 20:59 Last Admin: 06/12/17 20:42 Dose: 7.5 mg Multivitamins/Vitamin C (Theragran) 1 tab PO DAILY [facility] Stop: 08/06/17 08:59 Last Admin: 06/13/17 10:31 Dose: 1 tab Polyethylene Glycol (Miralax) 17 gm PO BID [facility] Stop: 08/08/17 12:14 Last Admin: 06/13/17 10:31 Dose: 17 gm Risperidone (Risperdal) 2 mg PO BID@0700,2100 [facility] Stop: 08/06/17 12:59 Last Admin: 06/13/17 06:25 Dose: Not Given General: weak, alert HEENT: NC/AT, PERRLA Neck: Supple Lungs: CTAB Cardiovascular: RRR, without murmur Abdomen: soft, non-distended, positive bowel sound Neurological: alert Internal Medicine Assmt/Plan - Assessment Assessment: severe dementia failure to thrive r/o electrolyte imbalance - Plan Plan: monitor i+o and electrolytes follow up labs in am continue current orders Nutritional Asmnt/Malnutr-PDOC - Dietary Evaluation Malnutrition Findings (Please click <Entered> for more info): Nutritional Asmnt/Malnutrition Start: 06/07/17 15: 37 Text: Status: Complete Freq: Document 06/07/17 15:37 LCHENG (Rec: 06/07/17 15:47 [email or web address]) Nutritional Asmnt/Malnutrition Patient General Information Nutritional Screening High Risk Consult Diagnosis ALOC, poor oral intake Pertinent Medical Hx/Surgical Hx dementia Subjective Information Consult received for poor PO intake. Pt seen sitting up in bed, confused, avoid eye contact, not able to communicate. Per WOOL SORTER, pt was sleeping and had no breakfast. Pt still refused lunch, and trying to get out of bed multiple times. Per note, pt is easily agitated, pull iv. Current Diet Order/ Nutrition Support regular Pertinent Medications D5-0.45ns, remeron, theragran Pertinent Labs 06/07 K 3.1 Nutritional Hx/Data Height 5 ft Height (Calculated Centimeters) 152.4 Current Weight (lbs) 123 lb Weight (Calculated Kilograms) 55.8 Weight (Calculated Grams) 59841.9 [place] Body Weight 106 Body Mass Index (BMI) 24.0 Weight Status Approriate GI Symptoms GI Symptoms None Last BM no record Difficult in: None Skin Integrity/Comment: intact Estimated Nutritional Goals BEE in Kcals: Using Current wt Calories/Kcals/Kg 25-30 Kcals Calculated 1409-0085 Protein: Using Current wt Protein g/k.8-1 Protein Calculated 45-56 Fluid: ml 1400-1680ml (1ml/kcal) Nutritional Problem 1. Problem Problem inadequate food intake Etiology mental status Signs/Symptoms: PO intake<25% Malnutrition Alert Protein-Calorie Malnutrition N/A Is there a minimum of two criteria No selected? Query Text:Check all the applicable criteria. A minimum of two criteria are recommended for diagnosis of either severe or non-severe malnutrition. Intervention/Recommendation Comments 1. Continue with current diet as ordered. Assist with feeding and encourage eating meals and snacks between meals . 2. Monitor PO intake, wt, labs and skin integrity 3. F/U as high risk in 2-3 days, 06/08-06/09 Expected Outcomes/Goals Expected Outcomes/Goals 1. PO intake to meet at least 75% of nutritional needs. 2. Wt stability, skin to remain intact, labs to approach WNL.
== END 2017-06-13 17:15 | disposition home or self-care (01) | DRG 421 ==
LOC: ER 16:13 → MSI 20:18
PROVIDERS: ADMIT Internal Medicine; ATTEND Internal Medicine
DX: R62.7 Adult failure to thrive (principal); F32.3 Major depressive disorder, single episode, severe with psychotic features; F03.90 Unspecified dementia, unspecified severity, without behavioral disturbance, psychotic disturbance, mood disturbance, and anxiety; R63.0 Anorexia; F29 Unspecified psychosis not due to a substance or known physiological condition; I10 Essential (primary) hypertension; F79 Unspecified intellectual disabilities; K59.00 Constipation, unspecified; F41.9 Anxiety disorder, unspecified; Z53.29 Procedure and treatment not carried out because of patient's decision for other reasons; Z68.25 Body mass index [BMI] 25.0-25.9, adult; Z79.899 Other long term (current) drug therapy
CPT/HCPCS: 36415-UA; 74000-TC; 80048-TC; 81001-TC; 83690-TC; 84484-TC; 85025-TC; 85610-TC; 94760; J0690; J1200; J1630; J2060; J7030; Q0177; Z7610

== ENCOUNTER 2017-06-15 21:56 | Inpatient (IN) | payer MEDICAID ==
[2017-06-15] MEDS ORDERED: Haloperidol Lactate 5 mg/mL 1mL Vial IM STA ×2 (22:06→22:07)
--- NOTE | 2017-06-15 22:13 | ED Physician Chart ---
ED Chief Complaint/HPI - Patient Information Date Seen:: 06/15/17 Time Seen:: 22:00 Chief Complaint:: anorexia History of Present Illness:: Patient has not been eating or taking his medicine for a few days. He was admitted here last week for about 1 week for the same problem. Allergies:: Allergies Allergy/AdvReac Type Severity Reaction Status Date / Time No Known Allergies Allergy Verified 06/15/17 21:58 Vitals:: Vital Signs - 8 hr 06/15/17 21:56 Temp 97.5 F HR 127 RR 20 BP 119/84 O2 Sat % 98 Historian:: Family Member, Other (patient's sister is the historian) Review:: Nurse's Note Reviewed ED Review of Systems - Review of Systems General/Constitutional: No fever, No chills, Loss of appetite Skin: No skin lesions Head: No headache Eyes: No loss of vision ENT: No earache Neck: No neck pain, No swelling Cardio Vascular: No chest pain, No palpitations Pulmonary: No SOB GI: No nausea, No vomiting, No diarrhea G/U: No dysuria Musculoskeletal: No bone or joint pain, No back pain, No muscle pain Endocrine: No polyuria, No polydipsia ED Past Medical History - Past Medical History Past Medical History: Other (mental retardation and schizophrenia) Family History: None Social History: Non Smoker, No Alcohol Surgical History: None Medication: Reviewed Family Medical History - Family Member Mother History Unknown: Yes Ethnicity: Living Status: Unknown Hx Family Cancer: (UNKNOWN) Hx Family Coronary Artery Disease: (UNKNOWN) Hx Family Congestive Heart Failure: (UNKNOWN) Hx Family Hypertension: (UNKNOWN) Hx Family Stroke: (UNKNOWN) Hx Family Diabetes: (UNKNOWN) Hx Family Seizures: (UNKNOWN) Hx Family Dementia: (UNKNOWN) Hx Family AIDS: (UNKNOWN) Hx Family COPD: (UNKNOWN) Hx Family Hepatitis: (UNKNOWN) Hx Family Psychiatric Problems: (UNKNOWN) Hx Family Tuberculosis: (UNKNOWN) ED Physical Exam - Physical Examination General/Constitutional: Well-developed, well-nourished, Alert, No distress Other Gen/Cons comments:: walks around constantly; does not stay still for physical exam Head: Atraumatic Eyes: Lids, conjuctiva normal, PERRL Skin: Nl inspection, No rash ENMT: External ears, nose nl Other ENMT comments:: 5 mm long about 1 mm wide abrasion of the bridge of the nose Neck: No nuchal rigidity Respiratory: Nl effort/Exclusion, Clear to Auscultation, No Wheeze/Rhonchi/Rales Cardio Vascular: RRR, No murmur, gallop, rubs GI: No tenderness/rebounding/guarding, No organomegaly : No CVA tenderness Extremities: Normal digits & nails Misc: Normal back ED Assessment - Assessment General Assessment: Chad called saying continue the medications the patient was on during his recent hospitalization. ED Septic Shock - . Is Septic Shock (SBP<90, OR Lactate>4 mmol\L) present?: No - <6hrs of presentation: Vital Signs: Vital Signs - 8 hr 06/15/17 21:56 Temp 97.5 F HR 127 RR 20 BP 119/84 O2 Sat % 98 ED Reassessment (Disposition) - Reassessment Reassessment Condition:: Unchanged - Diagnosis Diagnosis:: Anorexia; medication noncompliance; schizophrenia; retardation - Patient Disposition Admitted to:: Med/Surg Admitting Medical Physician:: Isidro Crowley Condition at Disposition:: Stable, Improved
[2017-06-15] MEDS ORDERED: Haloperidol Lactate 5 mg/mL 1mL Vial ONE (22:26)
[2017-06-15 23:45] LABS: % BASOPHILS 0.1 % (0.0-2.0); % EOSINOPHILS 0.1 % (0.0-5.0); % LYMPHOCYTES 21.8 % (20.0-50.0); HEMATOCRIT 42.3 % (41.0-60); HEMOGLOBIN 14.2 gm/dL (12-16); LYMPHOCYTE ABSOLUTE 1.8 Th/cmm (1.5-3.0); MEAN CORPUSCULAR HEMOGLOBIN 27.9 pg (26.0-30.0); MEAN CORPUSCULAR HGB CONC 33.6 pg (28.0-36.0); MEAN PLATELET VOLUME 8.2 fl; MONOCYTE ABSOLUTE 0.2 Th/cmm (0.3-1.0); NEUTROPHILE ABSOLUTE 6.2 Th/cmm (1.8-8.0); PLATELET COUNT 225 Th/cmm (150-400); RED CELL DISTRIBUTION WIDTH 14.6 % (11.5-20.0); WHITE BLOOD COUNT 8.2 Th/cmm (4.8-10.8)
[2017-06-16 00:03] LABS: BUN - UREA NITROGEN 15 mg/dL (7-25); CALCIUM SERUM 9.3 mg/dL (8.6-10.3); CHLORIDE 102 mEq/L (98-107); CREATININE - SERUM 0.7 mg/dL (0.7-1.3); GFR AFRICAN-AMERICAN > 60.0 ml/min (>90); GFR NON AFRICAN-AMERICAN > 60.0 ml/min; GLUCOSE 120 mg/dL (70-105); SODIUM SERUM 137 mEq/L (136-145)
[2017-06-16] MEDS ORDERED: Potassium Chloride 20 mEq ER Tab PO SCH (00:30)
[2017-06-16] MEDS ORDERED: Potassium Chloride 20 mEq ER Tab PO ONE ×2 (00:32→01:15)
[2017-06-16] MEDS ORDERED: D5-0.45NS 1,000 ML IV ONE (01:49)
[2017-06-16 02:06] VITALS: BP 97/61
[2017-06-16 06:09] LABS: % EOSINOPHILS 0.6 % (0.0-5.0); % MONOCYTES 6.7 % (2.0-10.0); % NEUTROPHILS 52.7 % (40.0-80.0); BASOPHILE ABSOLUTE 0.1 Th/cumm (0-0.2); HEMATOCRIT 39.5 % (41.0-60); HEMOGLOBIN 13.4 gm/dL (12-16); LYMPHOCYTE ABSOLUTE 2.9 Th/cmm (1.5-3.0); MEAN CELL VOLUME 82.2 fl (80-99); MEAN PLATELET VOLUME 7.6 fl; MONOCYTE ABSOLUTE 0.5 Th/cmm (0.3-1.0); NEUTROPHILE ABSOLUTE 3.9 Th/cmm (1.8-8.0); PLATELET COUNT 231 Th/cmm (150-400); RED CELL DISTRIBUTION WIDTH 14.8 % (11.5-20.0); WHITE BLOOD COUNT 7.4 Th/cmm (4.8-10.8)
[2017-06-16 07:01] LABS: ANION GAP 12.9 (7.0-16.0); BUN - UREA NITROGEN 15 mg/dL (7-25); CALCIUM SERUM 9.3 mg/dL (8.6-10.3); CARBON DIOXIDE 26.3 mEq/L (21.0-31.0); CHLORIDE 104 mEq/L (98-107); CREATININE - SERUM 0.8 mg/dL (0.7-1.3); GFR AFRICAN-AMERICAN > 60.0 ml/min (>90); GFR NON AFRICAN-AMERICAN > 60.0 ml/min; GLUCOSE 113 mg/dL (70-105); POTASSIUM SERUM 3.2 mEq/L (3.5-5.1); SODIUM SERUM 140 mEq/L (136-145)
--- NOTE | 2017-06-16 09:09 | GI Progress Note ---
Subjective - Review of Systems Service Date: 06/16/17 Subjective: Brought back to ER from facility as he was not taking meals or medications Objective - Results Result Diagrams: 06/16/17 06:02 06/16/17 06:02 Recent Labs: Laboratory Last Values WBC 7.4 Th/cmm (4.8-10.8) 06/16/17 06:02 RBC 4.80 Mil/cmm (4.30-5.70) 06/16/17 06:02 Hgb 13.4 gm/dL (12-16) 06/16/17 06:02 Hct 39.5 % (41.0-60) L 06/16/17 06:02 MCV 82.2 fl (80-99) 06/16/17 06:02 MCH 28.0 pg (26.0-30.0) 06/16/17 06:02 MCHC Differential 34.0 pg (28.0-36.0) 06/16/17 06:02 RDW 14.8 % (11.5-20.0) 06/16/17 06:02 Plt Count 231 Th/cmm (150-400) 06/16/17 06:02 MPV 7.6 fl 06/16/17 06:02 Neutrophils % 52.7 % (40.0-80.0) 06/16/17 06:02 Lymphocytes % 39.0 % (20.0-50.0) 06/16/17 06:02 Monocytes % 6.7 % (2.0-10.0) 06/16/17 06:02 Eosinophils % 0.6 % (0.0-5.0) 06/16/17 06:02 Basophils % 1.0 % (0.0-2.0) 06/16/17 06:02 Sodium 140 mEq/L (136-145) 06/16/17 06:02 Potassium 3.2 mEq/L (3.5-5.1) L 06/16/17 06:02 Chloride 104 mEq/L (98-107) 06/16/17 06:02 Carbon Dioxide 26.3 mEq/L (21.0-31.0) 06/16/17 06:02 Anion Gap 12.9 (7.0-16.0) 06/16/17 06:02 BUN 15 mg/dL (7-25) 06/16/17 06:02 Creatinine 0.8 mg/dL (0.7-1.3) 06/16/17 06:02 Est GFR ( Amer) > 60.0 ml/min (>90) 06/16/17 06:02 Est GFR (Non-Af Amer) > 60.0 ml/min 06/16/17 06:02 BUN/Creatinine Ratio 18.8 06/16/17 06:02 Glucose 113 mg/dL (70-105) H 06/16/17 06:02 Calcium 9.3 mg/dL (8.6-10.3) 06/16/17 06:02 Magnesium 2.1 mg/dL (1.9-2.7) 06/15/17 23:35 - Physical Exam Vitals and I&O: Vital Signs Temp 97.0 F 06/16/17 03:51 Pulse 62 06/16/17 03:51 Resp 17 06/16/17 03:51 BP 97/61 06/16/17 03:51 Pulse Ox 97 06/16/17 03:51 Intake & Output 06/15/17 06/16/17 06/16/17 18:59 06:59 18:59 Output Total 0 Balance 0 Weight (lbs) 54.885 kg Output: Stool 0 Other: # Voids 1 Weight Source Bedscale Active Medications: Current Medications Benztropine Mesylate (Cogentin) 1 mg PO BID [facility] Stop: 08/15/17 08:59 Cyproheptadine HCl (Periactin) 4 mg PO BID [facility] Stop: 08/15/17 08:59 Diphenhydramine HCl (Benadryl 50 Mg/Ml) 25 mg IM Q6HR PRN PRN Reason: Agitation Stop: 08/15/17 08:21 Diphenhydramine HCl (Benadryl) 25 mg PO HS [facility] Stop: 08/15/17 20:59 Divalproex Sodium (Depakote Sprinkle) 125 mg PO BID [facility] PRN Reason: Protocol Stop: 08/15/17 08:59 Gemfibrozil (Lopid) 600 mg PO BID [facility] Stop: 08/15/17 08:59 Hydroxyzine Pamoate (Vistaril) 50 mg PO TID [facility] PRN Reason: Protocol Stop: 08/15/17 08:59 Dextrose/Sodium Chloride (D5-0.45ns) 1,000 mls @ 125 mls/hr IV .Q8H [facility] Stop: 06/16/17 09:48 Last Admin: 06/16/17 03:40 Dose: 125 mls/hr Mirtazapine (Remeron) 7.5 mg PO HS [facility] PRN Reason: Protocol Stop: 08/15/17 20:59 Multivitamins/Vitamin C (Theragran) 1 tab PO DAILY [facility] Stop: 08/15/17 08:59 Polyethylene Glycol (Miralax) 17 gm PO BID [facility] Stop: 08/15/17 08:59 Risperidone (Risperdal) 2 mg PO BID@0700,2100 [facility] PRN Reason: Protocol Stop: 08/15/17 20:59 General: Alert HEENT: Atraumatic, PERRLA Neck: Supple Cardiovascular: Regular rate Abdomen: Bowel sounds, Soft, no Tender, no Hepatomegaly, no Distended, no Rebound, no Mass, no Guarding Skin: no Rash Assessment/Plan - Assessment Assessment: # Anorexia # history of Cognitive delay Pt here last week with same issue, and his sister refused EGD and G tube insertion as the pt would eat when she would feed him. Now again admitted as not taking meds or meals at his facility. Plan: - inquire with the pt's family whether they would like G tube at this point. Alternative is that they would need to work out with pt's facility what food regimen he would accept. If amenable to G tube insertion, would schedule for early next week - cont strong laxative and enema regimen to prevent obstipation
[2017-06-16] MEDS: POLYETHYLENE GLYCOL 3350 17 GM PACK PO SCH ×4 (09:49→17:05)
[2017-06-16] MEDS: Cyproheptadine 4 mg Tab PO SCH ×2 (09:53→17:04)
[2017-06-16] MEDS: Multivitamin Tab PO SCH (09:53)
[2017-06-16] MEDS: Benztropine 1 MG TAB PO SCH ×2 (09:53→17:04)
--- NOTE | 2017-06-16 13:59 | History and Physical ---
History of Present Illness - HPI Chief Complaint: poor oral intake HPI: This is a 37 year old male who is admitted to the medsur unit. Patient has a 3 day history of poor oral intake. Patient was recently admitted here for the same reasons. Vital Signs: Last Vital Signs Temp 97.0 F 06/16/17 03:51 Pulse 62 06/16/17 03:51 Resp 17 06/16/17 03:51 BP 97/61 06/16/17 03:51 Pulse Ox 97 06/16/17 03:51 Past Medical History Other History: htn Family Medical History - Family Member Mother History Unknown: Yes Ethnicity: Living Status: Still Living Hx Family Cancer: (UNKNOWN) Hx Family Coronary Artery Disease: (UNKNOWN) Hx Family Congestive Heart Failure: (UNKNOWN) Hx Family Hypertension: (UNKNOWN) Hx Family Stroke: (UNKNOWN) Hx Family Diabetes: (UNKNOWN) Hx Family Seizures: (UNKNOWN) Hx Family Dementia: (UNKNOWN) Hx Family AIDS: (UNKNOWN) Hx Family COPD: (UNKNOWN) Hx Family Hepatitis: (UNKNOWN) Hx Family Psychiatric Problems: (UNKNOWN) Hx Family Tuberculosis: (UNKNOWN) Other Medical History: unable to give information due to condition. Social History Smoke: No Alcohol: None Drugs: None Lives: Alone - Medications Home Medications: Home Medication Medication Instructions Recorded Type Benztropine [Cogentin*] 1 mg PO BID tab 06/13/17 Rx Cyproheptadine [Periactin] 4 mg PO BID tab 06/13/17 Rx Diphenhydramine HCL [Benadryl] 25 mg PO HS cap 06/13/17 Rx Divalproex Sprinkle [Depakote 125 mg PO BID ecc 06/13/17 Rx Sprinkle] Gemfibrozil [Lopid*] 600 mg PO BID tab 06/13/17 Rx Mirtazapine [Remeron] 7.5 mg PO HS tab 06/13/17 Rx Multivitamin [Theragran] 1 tab PO DAILY tab 06/13/17 Rx Polyethylene Glycol 3350 [Miralax] 17 gm PO BID pack 06/13/17 Rx diphenhydrAMINE [Benadryl 50 25 mg IM Q6HR PRN vial 06/13/17 Rx mg/mL] hydrOXYzine Pamoate [Vistaril] 50 mg PO TID cap 06/13/17 Rx risperiDONE [Risperdal] 2 mg PO BID@0700,2100 tab 06/13/17 Rx - Allergies Allergies/Adverse Reactions: Allergies Allergy/AdvReac Type Severity Reaction Status Date / Time No Known Allergies Allergy Verified 06/15/17 21:58 Review of Systems - Review of Systems Constitutional: Report: Weakness Eyes: Report: No Significant ENT: Report: No Significant Respiratory: Report: No Significant Cardiovascular: Report: No Significant Neurological: Report: Weakness Physical Exam - Physical Exam HEENT: Report: Ears Nose Throat within normal limits Neck: Report: Within normal limits Cardiovascular Systems: Report: +s1/s2 noted, Regular, Rate and Rhythm Respiratory: Report: Breath Sounds are within normal limits Abdomen: Report: Non-tender to palpation Back: Report: Inspection of back is within normal limits. Skin: Report: Color of skin is within normal limits Neuro/Psych: Report: Mood affect is within normal limits - Lab Results All Lab Results last 24 hours: Laboratory Results - last 24 hr 06/15/17 06/15/17 06/15/17 23:35 23:35 23:35 WBC 8.2 RBC 5.10 Hgb 14.2 Hct 42.3 MCV 83.0 MCH 27.9 MCHC Differential 33.6 RDW 14.6 Plt Count 225 MPV 8.2 Neutrophils % 75.0 Lymphocytes % 21.8 Monocytes % 3.0 Eosinophils % 0.1 Basophils % 0.1 Sodium 137 Potassium 3.0 L Chloride 102 Carbon Dioxide 25.0 Anion Gap 13.0 BUN 15 Creatinine 0.7 Est GFR ( Amer) > 60.0 Est GFR (Non-Af Amer) > 60.0 BUN/Creatinine Ratio 21.4 Glucose 120 H Calcium 9.3 Magnesium 2.1 06/16/17 06/16/17 06:02 06:02 WBC 7.4 RBC 4.80 Hgb 13.4 Hct 39.5 L MCV 82.2 MCH 28.0 MCHC Differential 34.0 RDW 14.8 Plt Count 231 MPV 7.6 Neutrophils % 52.7 Lymphocytes % 39.0 Monocytes % 6.7 Eosinophils % 0.6 Basophils % 1.0 Sodium 140 Potassium 3.2 L Chloride 104 Carbon Dioxide 26.3 Anion Gap 12.9 BUN 15 Creatinine 0.8 Est GFR ( Amer) > 60.0 Est GFR (Non-Af Amer) > 60.0 BUN/Creatinine Ratio 18.8 Glucose 113 H Calcium 9.3 Magnesium - Assessment Assessment: failure to thrive poor oral intake aloc dementia - Plan Plan: gi consultation ivf for hydration follow up labs in am continue current orders
[2017-06-16] MEDS ORDERED: POLYETHYLENE GLYCOL 3350 17 GM PACK PO SCH (17:00)
[2017-06-16] MEDS: D5-0.45NS 1,000 ML IV SCH (17:59)
[2017-06-16] MEDS ORDERED: Potassium Chloride Elixir 20 mEq /15 mL UDC PO ONE (20:55)
--- NOTE | 2017-06-17 09:18 | GI Progress Note ---
Subjective - Review of Systems Service Date: 06/17/17 Subjective: Report that the pt again ate with his sister feeding him Objective - Results Result Diagrams: 06/16/17 06:02 06/16/17 06:02 Recent Labs: Laboratory Last Values WBC 7.4 Th/cmm (4.8-10.8) 06/16/17 06:02 RBC 4.80 Mil/cmm (4.30-5.70) 06/16/17 06:02 Hgb 13.4 gm/dL (12-16) 06/16/17 06:02 Hct 39.5 % (41.0-60) L 06/16/17 06:02 MCV 82.2 fl (80-99) 06/16/17 06:02 MCH 28.0 pg (26.0-30.0) 06/16/17 06:02 MCHC Differential 34.0 pg (28.0-36.0) 06/16/17 06:02 RDW 14.8 % (11.5-20.0) 06/16/17 06:02 Plt Count 231 Th/cmm (150-400) 06/16/17 06:02 MPV 7.6 fl 06/16/17 06:02 Neutrophils % 52.7 % (40.0-80.0) 06/16/17 06:02 Lymphocytes % 39.0 % (20.0-50.0) 06/16/17 06:02 Monocytes % 6.7 % (2.0-10.0) 06/16/17 06:02 Eosinophils % 0.6 % (0.0-5.0) 06/16/17 06:02 Basophils % 1.0 % (0.0-2.0) 06/16/17 06:02 Sodium 140 mEq/L (136-145) 06/16/17 06:02 Potassium 3.2 mEq/L (3.5-5.1) L 06/16/17 06:02 Chloride 104 mEq/L (98-107) 06/16/17 06:02 Carbon Dioxide 26.3 mEq/L (21.0-31.0) 06/16/17 06:02 Anion Gap 12.9 (7.0-16.0) 06/16/17 06:02 BUN 15 mg/dL (7-25) 06/16/17 06:02 Creatinine 0.8 mg/dL (0.7-1.3) 06/16/17 06:02 Est GFR ( Amer) > 60.0 ml/min (>90) 06/16/17 06:02 Est GFR (Non-Af Amer) > 60.0 ml/min 06/16/17 06:02 BUN/Creatinine Ratio 18.8 06/16/17 06:02 Glucose 113 mg/dL (70-105) H 06/16/17 06:02 Calcium 9.3 mg/dL (8.6-10.3) 06/16/17 06:02 Magnesium 2.1 mg/dL (1.9-2.7) 06/15/17 23:35 - Physical Exam Vitals and I&O: Vital Signs Temp 97.9 F 06/17/17 07:41 Pulse 70 06/17/17 07:41 Resp 18 06/17/17 07:41 BP 96/57 06/17/17 07:41 Pulse Ox 96 06/17/17 07:41 Intake & Output 06/16/17 06/17/17 06/17/17 18:59 06:59 18:59 Intake Total 300 Balance 300 Weight (lbs) 54.885 kg 55.747 kg Intake: Oral 300 Other: # Voids 2 3 Weight Source Bedscale Bedscale Active Medications: Current Medications Benztropine Mesylate (Cogentin) 1 mg PO BID [facility] Stop: 08/15/17 08:59 Last Admin: 06/16/17 17:04 Dose: Not Given Cyproheptadine HCl (Periactin) 4 mg PO BID [facility] Stop: 08/15/17 08:59 Last Admin: 06/16/17 17:04 Dose: Not Given Diphenhydramine HCl (Benadryl 50 Mg/Ml) 25 mg IM Q6HR PRN PRN Reason: Agitation Stop: 08/15/17 08:21 Diphenhydramine HCl (Benadryl) 25 mg PO HS [facility] Stop: 08/15/17 20:59 Last Admin: 06/16/17 21:05 Dose: 25 mg Divalproex Sodium (Depakote Sprinkle) 125 mg PO BID [facility] PRN Reason: Protocol Stop: 08/15/17 08:59 Gemfibrozil (Lopid) 600 mg PO BID [facility] Stop: 08/15/17 08:59 Last Admin: 06/16/17 17:04 Dose: Not Given Hydroxyzine Pamoate (Vistaril) 50 mg PO TID [facility] PRN Reason: Protocol Stop: 08/15/17 08:59 Last Admin: 06/16/17 21:05 Dose: 50 mg Dextrose/Sodium Chloride (D5-0.45ns) 1,000 mls @ 125 mls/hr IV .Q8H [facility] Stop: 08/15/17 16:59 Last Admin: 06/16/17 17:59 Dose: 125 mls/hr Mirtazapine (Remeron) 7.5 mg PO HS [facility] PRN Reason: Protocol Stop: 08/15/17 20:59 Multivitamins/Vitamin C (Theragran) 1 tab PO DAILY [facility] Stop: 08/15/17 08:59 Last Admin: 06/16/17 09:53 Dose: Not Given Polyethylene Glycol (Miralax) 17 gm PO BID [facility] Stop: 08/15/17 08:59 Last Admin: 06/16/17 17:05 Dose: Not Given Risperidone (Risperdal) 2 mg PO BID@0700,2100 [facility] PRN Reason: Protocol Stop: 08/15/17 20:59 General: Alert HEENT: Atraumatic, PERRLA Neck: Supple Cardiovascular: Regular rate Abdomen: Bowel sounds, Soft, no Tender, no Hepatomegaly, no Distended, no Rebound, no Mass, no Guarding Skin: no Rash Assessment/Plan - Assessment Assessment: # Anorexia # history of Cognitive delay Pt here last week with same issue, and his sister refused EGD and G tube insertion as the pt would eat when she would feed him. Now again admitted as not taking meds or meals at his facility. At this point, decision whether to place G tube or to continue trying to feed pt at facility essentially lies with his sister, who is making decisions for the pt as HCP. She can also try and speak with his facility and inquire whether they can try different ways of feeding the pt that might be more successful. Plan: - inquire with the pt's family whether they would like G tube at this point. Alternative is that they would need to work out with pt's facility what food regimen he would accept. If amenable to G tube insertion, would schedule for early next week - cont strong laxative and enema regimen to prevent obstipation
[2017-06-17] MEDS: Benztropine 1 MG TAB PO SCH ×3 (10:53→17:29)
[2017-06-17] MEDS: Multivitamin Tab PO SCH (10:53)
[2017-06-17] MEDS: Cyproheptadine 4 mg Tab PO SCH ×3 (10:53→17:30)
[2017-06-17] MEDS: POLYETHYLENE GLYCOL 3350 17 GM PACK PO SCH ×3 (10:53→17:32)
--- NOTE | 2017-06-17 16:27 | Progress Notes ---
DATE: 06/17/2017 SUBJECTIVE: The patient was seen in his room, lying in the bed. The patient is asleep but easily arousable. The patient is a poor historian due to medical condition, otherwise appears to be in no acute distress. OBJECTIVE: VITAL SIGNS: Temperature 97.9, heart rate of 70, respirations of 18, 96% on room air, and blood pressure 96/57. HEENT: Head is atraumatic and normocephalic. Eyes: Bilateral conjunctivae are clear. Bilateral pupils are equally round and reactive. NECK: Supple. No JVD. CARDIOVASCULAR: S1 and S2, without murmur. PULMONARY: Clear to auscultation. GASTROINTESTINAL: Soft and nontender without guarding. Positive bowel sounds. MUSCULOSKELETAL: No clubbing. No cyanosis noted. ASSESSMENT: 1. Failure to thrive. 2. Anorexia. 3. Hyperlipidemia. 4. Mood disorder. PLAN: We will continue to keep the patient inpatient. We will monitor the patient's nutritional intake. Follow up with the GI doctor. Treatment plans were discussed with the patient's nurse. Treatment plans were discussed with Dr. Crowley. JOB# [id number]
[2017-06-18] MEDS: POLYETHYLENE GLYCOL 3350 17 GM PACK PO SCH ×2 (09:41→17:26)
[2017-06-18] MEDS: Cyproheptadine 4 mg Tab PO SCH ×2 (09:43→17:26)
[2017-06-18] MEDS: Benztropine 1 MG TAB PO SCH ×2 (09:43→17:26)
[2017-06-18] MEDS: Multivitamin Tab PO SCH (09:44)
--- NOTE | 2017-06-18 10:01 | GI Progress Note ---
Subjective - Review of Systems Service Date: 06/18/17 Subjective: Spoke with pt's sister, pt again eating with her present Objective - Results Result Diagrams: 06/16/17 06:02 06/16/17 06:02 Recent Labs: Laboratory Last Values WBC 7.4 Th/cmm (4.8-10.8) 06/16/17 06:02 RBC 4.80 Mil/cmm (4.30-5.70) 06/16/17 06:02 Hgb 13.4 gm/dL (12-16) 06/16/17 06:02 Hct 39.5 % (41.0-60) L 06/16/17 06:02 MCV 82.2 fl (80-99) 06/16/17 06:02 MCH 28.0 pg (26.0-30.0) 06/16/17 06:02 MCHC Differential 34.0 pg (28.0-36.0) 06/16/17 06:02 RDW 14.8 % (11.5-20.0) 06/16/17 06:02 Plt Count 231 Th/cmm (150-400) 06/16/17 06:02 MPV 7.6 fl 06/16/17 06:02 Neutrophils % 52.7 % (40.0-80.0) 06/16/17 06:02 Lymphocytes % 39.0 % (20.0-50.0) 06/16/17 06:02 Monocytes % 6.7 % (2.0-10.0) 06/16/17 06:02 Eosinophils % 0.6 % (0.0-5.0) 06/16/17 06:02 Basophils % 1.0 % (0.0-2.0) 06/16/17 06:02 Sodium 140 mEq/L (136-145) 06/16/17 06:02 Potassium 3.2 mEq/L (3.5-5.1) L 06/16/17 06:02 Chloride 104 mEq/L (98-107) 06/16/17 06:02 Carbon Dioxide 26.3 mEq/L (21.0-31.0) 06/16/17 06:02 Anion Gap 12.9 (7.0-16.0) 06/16/17 06:02 BUN 15 mg/dL (7-25) 06/16/17 06:02 Creatinine 0.8 mg/dL (0.7-1.3) 06/16/17 06:02 Est GFR ( Amer) > 60.0 ml/min (>90) 06/16/17 06:02 Est GFR (Non-Af Amer) > 60.0 ml/min 06/16/17 06:02 BUN/Creatinine Ratio 18.8 06/16/17 06:02 Glucose 113 mg/dL (70-105) H 06/16/17 06:02 Calcium 9.3 mg/dL (8.6-10.3) 06/16/17 06:02 Magnesium 2.1 mg/dL (1.9-2.7) 06/15/17 23:35 - Physical Exam Vitals and I&O: Vital Signs Temp 97.3 F 06/18/17 08:00 Pulse 78 06/18/17 08:00 Resp 97 06/18/17 08:00 BP 102/64 06/18/17 08:00 Pulse Ox 97 06/18/17 08:00 Intake & Output 06/17/17 06/18/17 06/18/17 18:59 06:59 18:59 Intake Total 100 200 Balance 100 200 Weight (lbs) 55.338 kg 54.885 kg Intake: Oral 100 200 Other: # Voids 2 3 Weight Source Bedscale Bedscale Active Medications: Current Medications Benztropine Mesylate (Cogentin) 1 mg PO BID [facility] Stop: 08/15/17 08:59 Last Admin: 06/18/17 09:43 Dose: 1 mg Cyproheptadine HCl (Periactin) 4 mg PO BID [facility] Stop: 08/15/17 08:59 Last Admin: 06/18/17 09:43 Dose: 4 mg Diphenhydramine HCl (Benadryl 50 Mg/Ml) 25 mg IM Q6HR PRN PRN Reason: Agitation Stop: 08/15/17 08:21 Diphenhydramine HCl (Benadryl) 25 mg PO HS [facility] Stop: 08/15/17 20:59 Last Admin: 06/17/17 22:31 Dose: 25 mg Divalproex Sodium (Depakote Sprinkle) 125 mg PO BID [facility] PRN Reason: Protocol Stop: 08/15/17 08:59 Last Admin: 06/18/17 09:43 Dose: 125 mg Gemfibrozil (Lopid) 600 mg PO BID [facility] Stop: 08/15/17 08:59 Last Admin: 06/18/17 09:44 Dose: 600 mg Hydroxyzine Pamoate (Vistaril) 50 mg PO TID [facility] PRN Reason: Protocol Stop: 08/15/17 08:59 Last Admin: 06/18/17 09:42 Dose: 50 mg Dextrose/Sodium Chloride (D5-0.45ns) 1,000 mls @ 125 mls/hr IV .Q8H [facility] Stop: 08/15/17 16:59 Last Infusion: 06/17/17 01:59 Dose: Infused Mirtazapine (Remeron) 7.5 mg PO HS [facility] PRN Reason: Protocol Stop: 08/15/17 20:59 Last Admin: 06/17/17 22:32 Dose: 7.5 mg Multivitamins/Vitamin C (Theragran) 1 tab PO DAILY [facility] Stop: 08/15/17 08:59 Last Admin: 06/18/17 09:44 Dose: 1 tab Polyethylene Glycol (Miralax) 17 gm PO BID [facility] Stop: 08/15/17 08:59 Last Admin: 06/18/17 09:41 Dose: 17 gm Risperidone (Risperdal) 2 mg PO BID@0700,2100 [facility] PRN Reason: Protocol Stop: 08/15/17 20:59 Last Admin: 06/18/17 09:51 Dose: 2 mg General: Alert HEENT: Atraumatic, PERRLA Neck: Supple Cardiovascular: Regular rate Abdomen: Bowel sounds, Soft, no Tender, no Hepatomegaly, no Distended, no Rebound, no Mass, no Guarding Skin: no Rash Assessment/Plan - Assessment Assessment: # Anorexia # history of Cognitive delay Pt here last week with same issue, and his sister refused EGD and G tube insertion as the pt would eat when she would feed him. Now again admitted as not taking meds or meals at his facility. At this point, decision whether to place G tube or to continue trying to feed pt at facility essentially lies with his sister, who is making decisions for the pt as HCP. I spoke with sister on 06/18, and she again voices she does not want G tube. She can also try and speak with his facility and inquire whether they can try different ways of feeding the pt that might be more successful. Plan: - Sister will work out with pt's facility what food regimen he would accept. - Family does not want G tube placed - cont strong laxative and enema regimen to prevent obstipation GI to see as needed, please call with questions
[2017-06-18] MEDS: D5-0.45NS 1,000 ML IV SCH ×2 (10:07→17:39)
--- NOTE | 2017-06-18 11:22 | General Progress Note ---
Subjective - Review of Systems Events since last encounter: no distress patient awake alert Objective - Results Result Diagrams: 06/16/17 06:02 06/16/17 06:02 Recent Labs: Laboratory Last Values WBC 7.4 Th/cmm (4.8-10.8) 06/16/17 06:02 RBC 4.80 Mil/cmm (4.30-5.70) 06/16/17 06:02 Hgb 13.4 gm/dL (12-16) 06/16/17 06:02 Hct 39.5 % (41.0-60) L 06/16/17 06:02 MCV 82.2 fl (80-99) 06/16/17 06:02 MCH 28.0 pg (26.0-30.0) 06/16/17 06:02 MCHC Differential 34.0 pg (28.0-36.0) 06/16/17 06:02 RDW 14.8 % (11.5-20.0) 06/16/17 06:02 Plt Count 231 Th/cmm (150-400) 06/16/17 06:02 MPV 7.6 fl 06/16/17 06:02 Neutrophils % 52.7 % (40.0-80.0) 06/16/17 06:02 Lymphocytes % 39.0 % (20.0-50.0) 06/16/17 06:02 Monocytes % 6.7 % (2.0-10.0) 06/16/17 06:02 Eosinophils % 0.6 % (0.0-5.0) 06/16/17 06:02 Basophils % 1.0 % (0.0-2.0) 06/16/17 06:02 Sodium 140 mEq/L (136-145) 06/16/17 06:02 Potassium 3.2 mEq/L (3.5-5.1) L 06/16/17 06:02 Chloride 104 mEq/L (98-107) 06/16/17 06:02 Carbon Dioxide 26.3 mEq/L (21.0-31.0) 06/16/17 06:02 Anion Gap 12.9 (7.0-16.0) 06/16/17 06:02 BUN 15 mg/dL (7-25) 06/16/17 06:02 Creatinine 0.8 mg/dL (0.7-1.3) 06/16/17 06:02 Est GFR ( Amer) > 60.0 ml/min (>90) 06/16/17 06:02 Est GFR (Non-Af Amer) > 60.0 ml/min 06/16/17 06:02 BUN/Creatinine Ratio 18.8 06/16/17 06:02 Glucose 113 mg/dL (70-105) H 06/16/17 06:02 Calcium 9.3 mg/dL (8.6-10.3) 06/16/17 06:02 Magnesium 2.1 mg/dL (1.9-2.7) 06/15/17 23:35 - Physical Exam Vitals and I&O: Vital Signs Temp 97.3 F 06/18/17 08:00 Pulse 78 06/18/17 08:00 Resp 18 06/18/17 08:00 BP 102/64 06/18/17 08:00 Pulse Ox 97 06/18/17 08:00 Intake & Output 06/17/17 06/18/17 06/18/17 18:59 06:59 18:59 Intake Total 100 200 Balance 100 200 Weight (lbs) 55.338 kg 54.885 kg Intake: Oral 100 200 Other: # Voids 2 3 Weight Source Bedscale Bedscale Active Medications: Current Medications Benztropine Mesylate (Cogentin) 1 mg PO BID [facility] Stop: 08/15/17 08:59 Last Admin: 06/18/17 09:43 Dose: 1 mg Cyproheptadine HCl (Periactin) 4 mg PO BID [facility] Stop: 08/15/17 08:59 Last Admin: 06/18/17 09:43 Dose: 4 mg Diphenhydramine HCl (Benadryl 50 Mg/Ml) 25 mg IM Q6HR PRN PRN Reason: Agitation Stop: 08/15/17 08:21 Diphenhydramine HCl (Benadryl) 25 mg PO HS [facility] Stop: 08/15/17 20:59 Last Admin: 06/17/17 22:31 Dose: 25 mg Divalproex Sodium (Depakote Sprinkle) 125 mg PO BID [facility] PRN Reason: Protocol Stop: 08/15/17 08:59 Last Admin: 06/18/17 09:43 Dose: 125 mg Gemfibrozil (Lopid) 600 mg PO BID [facility] Stop: 08/15/17 08:59 Last Admin: 06/18/17 09:44 Dose: 600 mg Hydroxyzine Pamoate (Vistaril) 50 mg PO TID [facility] PRN Reason: Protocol Stop: 08/15/17 08:59 Last Admin: 06/18/17 09:42 Dose: 50 mg Dextrose/Sodium Chloride (D5-0.45ns) 1,000 mls @ 125 mls/hr IV .Q8H [facility] Stop: 08/15/17 16:59 Last Admin: 06/18/17 10:07 Dose: 125 mls/hr Mirtazapine (Remeron) 7.5 mg PO HS [facility] PRN Reason: Protocol Stop: 08/15/17 20:59 Last Admin: 06/17/17 22:32 Dose: 7.5 mg Multivitamins/Vitamin C (Theragran) 1 tab PO DAILY [facility] Stop: 08/15/17 08:59 Last Admin: 06/18/17 09:44 Dose: 1 tab Polyethylene Glycol (Miralax) 17 gm PO BID [facility] Stop: 08/15/17 08:59 Last Admin: 06/18/17 09:41 Dose: 17 gm Risperidone (Risperdal) 2 mg PO BID@0700,2100 [facility] PRN Reason: Protocol Stop: 08/15/17 20:59 Last Admin: 06/18/17 09:51 Dose: 2 mg General: Alert HEENT: Atraumatic, PERRLA Neck: Supple Cardiovascular: Regular rate Abdomen: Bowel sounds, Soft, no Tender, no Hepatomegaly, no Distended, no Rebound, no Mass, no Guarding Skin: no Rash Assessment/Plan - Assessment Assessment: failure to thrive poor oral intake aloc dementia - Plan Plan: gi consultation ivf for hydration follow up labs in am continue current orders Nutritional Asmnt/Malnutr-PDOC - Dietary Evaluation Malnutrition Findings (Please click <Entered> for more info): Nutritional Asmnt/Malnutrition Start: 06/16/17 16: 53 Text: Status: Complete Freq: Document 06/16/17 16:53 VIKRAM (Rec: 06/16/17 17:08 [email or web address]) Nutritional Asmnt/Malnutrition Patient General Information Nutritional Screening High Risk Diagnosis anorexia, medication non compliance, schizophrenia Pertinent Medical Hx/Surgical Hx HTN Subjective Information Per H&P pt had poor PO intake x 3 days. Pt was here last week with the same issue. Pt seen sleeping in bed at time of visit. RN reported pt pulled out IV, standing on bed , not eating breakfast and refused medications. Per nurse note, family refused Gtube. Current Diet Order/ Nutrition Support regular Pertinent Medications D5-0.45ns, remeron, theragran, miralax Pertinent Labs 06/16 Na 140, K 3.2, Cl 104, BUN 15, Cr 0.8, glucose 113 Nutritional Hx/Data Height 1.52 m Height (Calculated Centimeters) 152.4 Current Weight (lbs) 54.885 kg Weight (Calculated Kilograms) 54.9 Weight (Calculated Grams) 83641.7 [place] Body Weight 106 Body Mass Index (BMI) 23.6 Weight Status Approriate GI Symptoms GI Symptoms None Last BM no record Skin Integrity/Comment: bruises Current %PO Negligible < 25% Estimated Nutritional Goals BEE in Kcals: Using Current wt Calories/Kcals/Kg 25-30 Kcals Calculated 4103-5587 Protein: Using Current wt Protein g/k Protein Calculated 55 Fluid: ml 1375-1650ml (1ml/kcal) Nutritional Problem 1. Problem Problem inadequate food intake Etiology ?mental status, ? constipation Signs/Symptoms: pt not eating Malnutrition Alert Protein-Calorie Malnutrition N/A Is there a minimum of two criteria No selected? Query Text:Check all the applicable criteria. A minimum of two criteria are recommended for diagnosis of either severe or non-severe malnutrition. Intervention/Recommendation Comments 1. Continue with current diet as ordered. Pt likes eat food on bread/sandwich. Pt only drink when eating. Assist pt with meals. 2. Monitor PO intake, wt, labs and skin integrity 3. F/U as high risk in 2-3 days, 06/18-06/19 Expected Outcomes/Goals Expected Outcomes/Goals 1. PO intake to meet at least 75% of nutritional needs. 2. Wt stability, skin to remain intact, labs to approach WNL.
[2017-06-19 05:36] LABS: % BASOPHILS 0.2 % (0.0-2.0); % EOSINOPHILS 1.4 % (0.0-5.0); % LYMPHOCYTES 42.9 % (20.0-50.0); % MONOCYTES 5.5 % (2.0-10.0); EOSINOPHILE ABSOLUTE 0.1 Th/cmm (0.1-0.4); HEMATOCRIT 37.2 % (41.0-60); HEMOGLOBIN 12.4 gm/dL (12-16); MEAN CELL VOLUME 84.1 fl (80-99); MEAN CORPUSCULAR HGB CONC 33.3 pg (28.0-36.0); MEAN PLATELET VOLUME 8.1 fl; MONOCYTE ABSOLUTE 0.4 Th/cmm (0.3-1.0); NEUTROPHILE ABSOLUTE 3.5 Th/cmm (1.8-8.0); PLATELET COUNT 194 Th/cmm (150-400); RED BLOOD COUNT 4.42 Mil/cmm (4.30-5.70); RED CELL DISTRIBUTION WIDTH 14.8 % (11.5-20.0)
[2017-06-19 06:01] LABS: ALB/GLOB RATIO 1.8 (1.0-1.8); ALBUMIN 3.3 gm/dL (4.2-5.5); ALKALINE PHOSPHATASE 33 U/L (34-104); ANION GAP 9.1 (7.0-16.0); BILIRUBIN,TOTAL 0.3 mg/dL (0.3-1.0); BUN - UREA NITROGEN 9 mg/dL (7-25); CALCIUM SERUM 8.1 mg/dL (8.6-10.3); CARBON DIOXIDE 22.3 mEq/L (21.0-31.0); CHLORIDE 110 mEq/L (98-107); CREATININE - SERUM 0.6 mg/dL (0.7-1.3); GFR AFRICAN-AMERICAN > 60.0 ml/min (>90); GFR NON AFRICAN-AMERICAN > 60.0 ml/min; GLUCOSE 123 mg/dL (70-105); POTASSIUM SERUM 3.4 mEq/L (3.5-5.1); SGOT 14 U/L (13-39); SGPT/ALT 11 U/L (7-52); SODIUM SERUM 138 mEq/L (136-145); TOTAL PROTEIN,SERUM 5.1 gm/dL (6.0-8.3)
[2017-06-19] MEDS: Cyproheptadine 4 mg Tab PO SCH (08:33)
[2017-06-19] MEDS: Benztropine 1 MG TAB PO SCH (08:33)
[2017-06-19] MEDS: Multivitamin Tab PO SCH (08:33)
[2017-06-19] MEDS: POLYETHYLENE GLYCOL 3350 17 GM PACK PO SCH (08:33)
--- NOTE | 2017-06-19 11:37 | General Progress Note ---
Subjective - Review of Systems Service Date: 06/19/17 Subjective: awake denies pain or discomfort not in actute distress Objective - Results Result Diagrams: 06/19/17 05:00 06/19/17 05:00 Recent Labs: Laboratory Last Values WBC 7.0 Th/cmm (4.8-10.8) 06/19/17 05:00 RBC 4.42 Mil/cmm (4.30-5.70) 06/19/17 05:00 Hgb 12.4 gm/dL (12-16) 06/19/17 05:00 Hct 37.2 % (41.0-60) L 06/19/17 05:00 MCV 84.1 fl (80-99) 06/19/17 05:00 MCH 28.0 pg (26.0-30.0) 06/19/17 05:00 MCHC Differential 33.3 pg (28.0-36.0) 06/19/17 05:00 RDW 14.8 % (11.5-20.0) 06/19/17 05:00 Plt Count 194 Th/cmm (150-400) 06/19/17 05:00 MPV 8.1 fl 06/19/17 05:00 Neutrophils % 50.0 % (40.0-80.0) 06/19/17 05:00 Lymphocytes % 42.9 % (20.0-50.0) 06/19/17 05:00 Monocytes % 5.5 % (2.0-10.0) 06/19/17 05:00 Eosinophils % 1.4 % (0.0-5.0) 06/19/17 05:00 Basophils % 0.2 % (0.0-2.0) 06/19/17 05:00 Sodium 138 mEq/L (136-145) 06/19/17 05:00 Potassium 3.4 mEq/L (3.5-5.1) L 06/19/17 05:00 Chloride 110 mEq/L (98-107) H 06/19/17 05:00 Carbon Dioxide 22.3 mEq/L (21.0-31.0) 06/19/17 05:00 Anion Gap 9.1 (7.0-16.0) 06/19/17 05:00 BUN 9 mg/dL (7-25) 06/19/17 05:00 Creatinine 0.6 mg/dL (0.7-1.3) L 06/19/17 05:00 Est GFR ( Amer) > 60.0 ml/min (>90) 06/19/17 05:00 Est GFR (Non-Af Amer) > 60.0 ml/min 06/19/17 05:00 BUN/Creatinine Ratio 15.0 06/19/17 05:00 Glucose 123 mg/dL (70-105) H 06/19/17 05:00 Calcium 8.1 mg/dL (8.6-10.3) L 06/19/17 05:00 Magnesium 2.1 mg/dL (1.9-2.7) 06/15/17 23:35 Total Bilirubin 0.3 mg/dL (0.3-1.0) 06/19/17 05:00 AST 14 U/L (13-39) 06/19/17 05:00 ALT 11 U/L (7-52) 06/19/17 05:00 Alkaline Phosphatase 33 U/L (34-104) L 06/19/17 05:00 Total Protein 5.1 gm/dL (6.0-8.3) L 06/19/17 05:00 Albumin 3.3 gm/dL (4.2-5.5) L 06/19/17 05:00 Globulin 1.8 gm/dL 06/19/17 05:00 Albumin/Globulin Ratio 1.8 (1.0-1.8) 06/19/17 05:00 - Physical Exam Vitals and I&O: Vital Signs Temp 96.8 F 06/19/17 09:03 Pulse 78 06/19/17 09:03 Resp 18 06/19/17 09:03 BP 102/63 06/19/17 09:03 Pulse Ox 94 06/19/17 09:03 Intake & Output 06/18/17 06/19/17 06/19/17 18:59 06:59 18:59 Intake Total 941.667 400 Output Total 0 Balance 941.667 400 Weight (lbs) 54.885 kg Intake: Intake, IV Amount 941.667 D5-0.45NS 1,000 ml @ 125 941.667 mls/hr IV .Q8H [facility] Rx#: [id number] Oral 400 Output: Stool 0 Other: # Voids 3 # Bowel Movements 0 Weight Source Bedscale Active Medications: Current Medications Benztropine Mesylate (Cogentin) 1 mg PO BID [facility] Stop: 08/15/17 08:59 Last Admin: 06/19/17 08:33 Dose: 1 mg Cyproheptadine HCl (Periactin) 4 mg PO BID [facility] Stop: 08/15/17 08:59 Last Admin: 06/19/17 08:33 Dose: 4 mg Diphenhydramine HCl (Benadryl 50 Mg/Ml) 25 mg IM Q6HR PRN PRN Reason: Agitation Stop: 08/15/17 08:21 Diphenhydramine HCl (Benadryl) 25 mg PO HS [facility] Stop: 08/15/17 20:59 Last Admin: 06/18/17 23:38 Dose: Not Given Divalproex Sodium (Depakote Sprinkle) 125 mg PO BID [facility] PRN Reason: Protocol Stop: 08/15/17 08:59 Last Admin: 06/19/17 08:33 Dose: 125 mg Gemfibrozil (Lopid) 600 mg PO BID [facility] Stop: 08/15/17 08:59 Last Admin: 06/19/17 08:33 Dose: 600 mg Hydroxyzine Pamoate (Vistaril) 50 mg PO TID [facility] PRN Reason: Protocol Stop: 08/15/17 08:59 Last Admin: 06/19/17 08:33 Dose: 50 mg Dextrose/Sodium Chloride (D5-0.45ns) 1,000 mls @ 125 mls/hr IV .Q8H [facility] Stop: 08/15/17 16:59 Last Admin: 06/18/17 17:39 Dose: 125 mls/hr Mirtazapine (Remeron) 7.5 mg PO HS [facility] PRN Reason: Protocol Stop: 08/15/17 20:59 Last Admin: 06/18/17 23:38 Dose: Not Given Multivitamins/Vitamin C (Theragran) 1 tab PO DAILY [facility] Stop: 08/15/17 08:59 Last Admin: 06/19/17 08:33 Dose: 1 tab Polyethylene Glycol (Miralax) 17 gm PO BID [facility] Stop: 08/15/17 08:59 Last Admin: 06/19/17 08:33 Dose: 17 gm Risperidone (Risperdal) 2 mg PO BID@0700,2100 [facility] PRN Reason: Protocol Stop: 08/15/17 20:59 Last Admin: 06/19/17 08:35 Dose: 2 mg General: Alert HEENT: Atraumatic, PERRLA Neck: Supple Cardiovascular: Regular rate Abdomen: Bowel sounds, Soft, no Tender, no Hepatomegaly, no Distended, no Rebound, no Mass, no Guarding Skin: no Rash Assessment/Plan - Assessment Assessment: failure to thrive poor oral intake aloc dementia - Plan Plan: gi consultation ivf for hydration follow up labs in am continue current orders Nutritional Asmnt/Malnutr-PDOC - Dietary Evaluation Malnutrition Findings (Please click <Entered> for more info): Nutritional Asmnt/Malnutrition Start: 06/16/17 16: 53 Text: Status: Complete Freq: Document 06/16/17 16:53 LCEVELING (Rec: 06/16/17 17:08 [email or web address]) Nutritional Asmnt/Malnutrition Patient General Information Nutritional Screening High Risk Diagnosis anorexia, medication non compliance, schizophrenia Pertinent Medical Hx/Surgical Hx HTN Subjective Information Per H&P pt had poor PO intake x 3 days. Pt was here last week with the same issue. Pt seen sleeping in bed at time of visit. RN reported pt pulled out IV, standing on bed , not eating breakfast and refused medications. Per nurse note, family refused Gtube. Current Diet Order/ Nutrition Support regular Pertinent Medications D5-0.45ns, remeron, theragran, miralax Pertinent Labs 06/16 Na 140, K 3.2, Cl 104, BUN 15, Cr 0.8, glucose 113 Nutritional Hx/Data Height 1.52 m Height (Calculated Centimeters) 152.4 Current Weight (lbs) 54.885 kg Weight (Calculated Kilograms) 54.9 Weight (Calculated Grams) 82449.7 [place] Body Weight 106 Body Mass Index (BMI) 23.6 Weight Status Approriate GI Symptoms GI Symptoms None Last BM no record Skin Integrity/Comment: bruises Current %PO Negligible < 25% Estimated Nutritional Goals BEE in Kcals: Using Current wt Calories/Kcals/Kg 25-30 Kcals Calculated 6839-9433 Protein: Using Current wt Protein g/k Protein Calculated 55 Fluid: ml 1375-1650ml (1ml/kcal) Nutritional Problem 1. Problem Problem inadequate food intake Etiology ?mental status, ? constipation Signs/Symptoms: pt not eating Malnutrition Alert Protein-Calorie Malnutrition N/A Is there a minimum of two criteria No selected? Query Text:Check all the applicable criteria. A minimum of two criteria are recommended for diagnosis of either severe or non-severe malnutrition. Intervention/Recommendation Comments 1. Continue with current diet as ordered. Pt likes eat food on bread/sandwich. Pt only drink when eating. Assist pt with meals. 2. Monitor PO intake, wt, labs and skin integrity 3. F/U as high risk in 2-3 days, 06/18-06/19 Expected Outcomes/Goals Expected Outcomes/Goals 1. PO intake to meet at least 75% of nutritional needs. 2. Wt stability, skin to remain intact, labs to approach WNL.
--- NOTE | 2017-06-24 10:00 | Discharge Summary ---
DATE OF DISCHARGE: 06/19/2017 COURSE OF TREATMENT: This is a 37-year-old male who was admitted to [facility] due to failure to thrive. The patient has been refusing to eat for the past days and also refusing to take his medication, so the patient was admitted to the hospital for monitoring and with diagnosis of failure to thrive and anorexia and also diagnosed with mood disorder. GI consult was done and per nutritionist public health. He discussed the case with the patient's power of managing attorney, which is his sister and they open up the possibility of the patient needing to have gastrostomy tube placement, but at this point DPOA refused for that option and instead they will try different ways or other alternatives to feed the patient. Otherwise, the patient was discharged to a board and care with the home medication reconciliation. The patient to follow up with his primary doctor within a week. Continue diet as tolerated. [facility]# [id number]
== END 2017-06-19 17:30 | disposition home or self-care (01) | DRG 421 ==
LOC: ER 21:56 → MSI 22:30
PROVIDERS: ADMIT Internal Medicine; ATTEND Internal Medicine
DX: R62.7 Adult failure to thrive (principal); E41 Nutritional marasmus; G93.41 Metabolic encephalopathy; F03.90 Unspecified dementia, unspecified severity, without behavioral disturbance, psychotic disturbance, mood disturbance, and anxiety; F20.9 Schizophrenia, unspecified; F79 Unspecified intellectual disabilities; I10 Essential (primary) hypertension; E78.5 Hyperlipidemia, unspecified; F39 Unspecified mood [affective] disorder; Z60.2 Problems related to living alone; Z68.23 Body mass index [BMI] 23.0-23.9, adult; Z91.19 Patient's noncompliance with other medical treatment and regimen
CPT/HCPCS: 36415-UA; 80048-TC; 80053-TC; 83735-TC; 85025-TC; J1200; J1630; J2060; Q0177; Z7610